=== PATIENT | female | born 2000 | race Caucasian/White ===

== ENCOUNTER → 2018-06-28 16:17 | Outpatient (CLI) | payer OTHER, SELFPAY ==
[2018-06-28 17:03] LABS: Basophils % 0.4 % (0.1-2.0); Eosinophils # 0.2 K/mm3 (0.0-0.4); Eosinophils % 2.3 % (0.1-12.0); Hemoglobin 14.6 g/dL (12.2-16.2); Lymphocytes # 2.7 K/mm3 (0.7-4.5); Lymphocytes % 29.9 K/mm3 (10-50); Mean Corpuscular HGB Conc 33.2 g/dL (31.8-35.4); Mean Corpuscular Hemoglobin 31.1 pg (27.0-31.2); Mean Corpuscular Volume 93.6 fl (81-99); Mean Platelet Volume 6.8 fl (7.4-10.4); Monocytes # 0.6 K/mm3 (0.1-1.0); Monocytes % 6.7 % (1.7-9.3); Neutrophils # 5.4 K/mm3 (1.8-7.8); Neutrophils % 60.8 % (37.0-80.0); Platelet Count 377 K/mm3 (142-424); Red Cell Distribution Width 12.9 % (11.5-17.5); White Blood Count 8.9 K/mm3 (4.5-13.0)
[2018-06-30 08:30] LABS: HIV Screen 4th Generation wRfx Non Reactive (Non Reactive)
[2018-06-30 09:11] LABS: Rapid Plasma Reagin Ab Titer Non Reactive (NonRea<1:1); Rubella Antibodies, IgG 1.03 index (Immune >0.99)
[2018-06-30 18:09] LABS: Hepatitis B Surface Antigen Negative (Negative); Hepatitis C Antibody <0.1 s/co ratio (0.0-0.9)
[2018-07-04 08:29] LABS: Neisseria gonorrhoeae, NAA Negative (Negative)
== END ==
PROVIDERS: PCP Family Medicine; Visit Provider Nurse Practitioner Obstetrics & Gynecology
DX: Z34.90 Encounter for supervision of normal pregnancy, unspecified, unspecified trimester (principal)
CPT/HCPCS: 36415; 85025; 86592; 86703; 86762; 86850; 87340; 87380; 87491; 87591; G0432

== ENCOUNTER → 2018-07-06 13:29 | Outpatient (CLI) | payer OTHER, SELFPAY ==
--- NOTE | 2018-07-06 13:31 | US_ITS ---
US OB transvaginal HISTORY: ITS.REASON: US OB- DATES ORDERING PHYSICIAN: Boogie Contreras MD PATIENT AGE: 18 years COMPARISON: None FINDINGS: There is an intrauterine gestational sac with a mean sac diameter of 1.78 cm. There is a yolk sac present with a questionable pole measuring 3.5 mm. This would correspond to gestational age of 6 weeks and 0 days. This however is not for certain. Consider follow-up exam as well as correlation with beta hCGs. No heart tones evident at this time. No adnexal mass or cul-de-sac fluid. IMPRESSION: Intrauterine gestational sac with questionable pole. No heart tones apparent. Cannot confirm viability at this time. Recommend 7-10 day follow-up as well as correlation with beta hCGs to confirm viability
== END ==
PROVIDERS: PCP Family Medicine; Visit Provider Nurse Practitioner Obstetrics & Gynecology
DX: O26.841 Uterine size-date discrepancy, first trimester (principal)
CPT/HCPCS: 76830

== ENCOUNTER → 2018-10-17 12:51 | Outpatient (CLI) | payer OTHER, SELFPAY ==
--- NOTE | 2018-10-17 12:54 | US_ITS ---
US OB /maternal detail: INDICATION: ITS.REASON: US OB Complete ORDERING PHYSICIAN: Boogie Contreras MD PATIENT AGE: 18 years TECHNIQUE: ultrasound transabdominal scanning. COMPARISON: No previous relevant studies. FINDINGS: Single viable intrauterine gestation. Range position. Placenta: Anterior placenta grade 1. There is average amount fluid. The cervix appears satisfactory. Closed and measuring 4 cm in length. Complete survey performed and was unremarkable on the submitted images as in PACS. No discrete anomalies identified on survey imaging by technologist. Active fetus. Three-vessel cord with satisfactory umbilical cord insertion. 4- chamber heart noted. Survey of brain & ventricles unremarkable. Face and neck survey unremarkable. Diaphragm and chest views unremarkable. Abdomen: Both kidneys noted and unremarkable. Stomach noted and satisfactory. Spine: Survey of the spine satisfactory with no anomalies identified nor imaged. Both arms and legs noted. Amniotic Fluid: Adequate. Maternal adnexa: No significant findings. Measurements: Average ultrasound age 20w6d. Gestational Age 21w0d. Estimated due date by ultrasound age 0402/28/2019. Estimated weight 380 grams. BPD = 21w1d OFD = 21w0d HC = 20w2d AC = 21w0d FL = 21w0d Growth Percentile= 35% Heart Rate = 147 Cerebellum = 21w1d Humerus = 21w6d HC/AC is 1.12 (1.06-1.25). CI is 79% (70-86%). FL/BPD is 70%. FL/AC is 22% (20-24%). IMPRESSION: There is a single live breech presentation with an average ultrasound age of 20 weeks 6 days. All parameters correlate. No obvious anomalies. Anterior grade 1 placenta. Please see above for details
== END ==
PROVIDERS: PCP Family Medicine; Visit Provider Nurse Practitioner Obstetrics & Gynecology
DX: Z36.0 Encounter for antenatal screening for chromosomal anomalies (principal)
CPT/HCPCS: 76811

== ENCOUNTER 2018-11-24 06:44 | Outpatient (CLI) | payer OTHER, SELFPAY ==
[2018-11-24 06:53] VITALS: BMI 61.0
[2018-11-24 07:03] VITALS: BP 96/59; PULSE 84; RESP 20; TEMP 36.7; O2SAT 98; BMI 45.3
[2018-11-24 07:45] LABS: Microscopic, Urine URINE MICROSCOPIC (MICROSCOPIC)
[2018-11-24 07:47] LABS: Appearance,Urine CLOUDY (Clear); Bilirubin,Urine Negative (Negative); Blood, Urine Negative (Negative); Glucose,Urine (UA) Negative (Negative); Ketones,Urine Negative (Negative); Leukocyte Esterase,Urine Negative (Negative); Nitrate,Urine Negative (Negative); Protein,Urine Negative (Negative); Specific Gravity, Urine >= 1.030 (1.005-1.030); Urobilinogen,Urine 0.2 EU/dl (0.2)
[2018-11-24 07:54] LABS: Color,Urine Dark Yellow (Yellow)
[2018-11-24 08:02] LABS: Bacteria,Urine Trace /lpf; Mucus,Urine 2+ /lpf; RBC,Urine Occasional #/hpf (0-3); WBC,Urine Occasional #/hpf (0-3)
--- NOTE | 2018-11-24 09:45 | SW/DCPLANNER ---
I have set this patient up with [facility]. Patient is currently ready for discharge and will transport under Medicaid benefit.
== END 2018-11-24 09:50 | disposition home or self-care (01) ==
LOC: OBOUT 06:46 → OB 06:48
PROVIDERS: PCP Family Medicine; Visit Provider Obstetrics & Gynecology
DX: O47.02 False labor before 37 completed weeks of gestation, second trimester (principal); Z3A.26 26 weeks gestation of pregnancy
CPT/HCPCS: 59025; 81001

== ENCOUNTER → 2018-12-06 08:13 | Outpatient (CLI) | payer OTHER, SELFPAY ==
[2018-12-06 08:51] LABS: Glucose,Fasting 100 mg/dL (60-105)
[2018-12-06 10:24] LABS: Glucose 1 Hour 141 mg/dL (74-106)
== END ==
PROVIDERS: Visit Provider Nurse Practitioner Obstetrics & Gynecology
DX: Z34.90 Encounter for supervision of normal pregnancy, unspecified, unspecified trimester (principal)
CPT/HCPCS: 36415; 82951

== ENCOUNTER → 2018-12-08 08:56 | Outpatient (CLI) | payer OTHER, SELFPAY ==
[2018-12-08 09:29] LABS: Glucose,Fasting 99 mg/dL (60-105)
[2018-12-08 11:21] LABS: Glucose 1 Hour 162 mg/dL (74-106)
[2018-12-08 12:13] LABS: Glucose 2 Hour 141 mg/dL (74-106)
[2018-12-08 14:06] LABS: Glucose 3 Hour 127 mg/dL (74-106)
== END ==
PROVIDERS: Visit Provider Nurse Practitioner Obstetrics & Gynecology
DX: Z34.90 Encounter for supervision of normal pregnancy, unspecified, unspecified trimester (principal)
CPT/HCPCS: 36415; 82951

== ENCOUNTER → 2019-01-23 08:48 | Outpatient (CLI) | payer OTHER, SELFPAY ==
--- NOTE | 2019-01-23 09:00 | US_ITS ---
US OB BPP w/Fet-Mat S/D: Indication: ITS.REASON: US OB BPP Growth, S/D Ratio- LGA ORDERING PHYSICIAN: Boogie Contreras MD PATIENT AGE: 18 years FINDINGS: The following parameters are obtained: Average ultrasound age is 36w4d. Estimated due date by ultrasound is 02/16/2019. Estimated weight is 2958 grams which is 91st percentile BPD: 35w6d OFD: OFD HC: 36w5d AC: 36w3d FL: 37w2d heart rate: 143 bpm. HC/AC: 1.00 (0.96-1.11) Cephalic index: 77% (70-86%) FL/BPD: 82% (71-87%) FL/AC: 22% (20-24%) Amniotic fluid index: 15 cm Qualitative AFV: 2 breathing movements: 2 Gross body movements: 2 Tone: 2 Biophysical profile score: 8/8 Doppler evaluation of the umbilical artery: SD ratio: 0.59 Resistive index: 2.4 No obvious anomalies evident. Placenta: Anterior GR 2 Cervix: Appears closed and measures 3 cm IMPRESSION: There is a single live fetus which is in cephalic presentation with average ultrasound age of 36 weeks 4 days. Estimated weight is 2958 g which is 91st percentile large for gestational age. Biophysical profile dated March with an amniotic fluid index of 15 cm within normal limits. Doppler evaluation of umbilical artery is unremarkable.
== END ==
PROVIDERS: PCP Family Medicine; Visit Provider Nurse Practitioner Obstetrics & Gynecology
DX: O36.60X0 Maternal care for excessive fetal growth, unspecified trimester, not applicable or unspecified (principal)
CPT/HCPCS: 76811; 76819; 76820

== ENCOUNTER → 2019-01-30 16:57 | Outpatient (CLI) | payer OTHER, SELFPAY | PROVIDERS: Visit Provider Nurse Practitioner Obstetrics & Gynecology | DX: Z34.90 Encounter for supervision of normal pregnancy, unspecified, unspecified trimester (principal) | CPT/HCPCS: 86403 ==

== ENCOUNTER 2019-02-05 07:10 | Outpatient (CLI) | payer OTHER, SELFPAY ==
[2019-02-05 07:45] VITALS: BP 126/62; PULSE 95; RESP 17; TEMP 36.4; O2SAT 97; BMI 48.0
--- NOTE | 2019-02-05 08:39 | [facility].ACPN2 ---
Internal Medicine - PN: Subj *Date: 02/05/19 *Time: 08:39 Interval history: She is a 19-year-old 1 para 0 at 36 weeks who complains of contractions. She arrived and was having a few minor contractions. She received IV fluids and her contractions are settled. Her cervix is unchanged at 1 cm with a high station and 25% effaced. Nonstress test is reactive. Exam Vital signs and Labs for Last 24 Hours: Temp Pulse Resp BP Pulse Ox 97.6 F 95 H 17 126/62 97 02/05/19 07:45 02/05/19 07:45 02/05/19 07:45 02/05/19 07:45 02/05/19 07:45 I & O for Last 24 hours: Intake & Output 02/02/19 02/03/19 02/04/19 02/05/19 11:59 11:59 11:59 11:59 Weight 230 lb - Constitutional no acute distress Assessment and Plan (1) False labor before 37 completed weeks of gestation Current visit: Yes Status: Acute Category: Medical Code(s): O47.00 - False labor before 37 completed weeks of gestation, unspecified trimester - Assessment and plan all Dx Assessment and Plan for all problems:: She received IV fluids and her contractions have settled. She feels much better. We will send her home. She has an appoint with me tomorrow.
== END 2019-02-05 09:00 | disposition home or self-care (01) ==
LOC: OBOUT 07:11 → OB 07:12
PROVIDERS: PCP Family Medicine; Visit Provider Nurse Practitioner Obstetrics & Gynecology
DX: O60.03 Preterm labor without delivery, third trimester (principal); Z3A.36 36 weeks gestation of pregnancy
CPT/HCPCS: 59025; 96360

== ENCOUNTER → 2019-02-16 09:55 | Outpatient (CLI) | payer OTHER, SELFPAY ==
--- NOTE | 2019-02-16 09:56 | US_ITS ---
US OB BPP w/Fet-Mat S/D Ordering Physician: Boogie Contreras MD Patient Age: 19 years: Female HISTORY: ITS.REASON: Large for gestational age. Decreased amniotic fluid. US OB BPP Growth, S/D Ratio- LGA US OB BPP w/Fet-Mat S/D: TECHNIQUE: ultrasound transabdominal scanning/cc. With biophysical profile and SD ratio COMPARISON: 01/23/2019 ultrasound with average ultrasound age 36 weeks 4 days at that time. FINDINGS: Single viable intrauterine gestation. Cephalic position Currently. Placenta: Anterior high placenta grade 2. Cervix Closed and measuring 3.5 cm in length. Limited survey performed. Unremarkable on the submitted images as in PACS. No discrete anomalies identified on survey imaging by technologist. Active fetus.Three-vessel cord with satisfactory umbilical cord insertion Four-chamber heart with additional cine lo0p views of heart and fetus included Limited images of the head, abdomen, extremities today were unremarkable. Appears to be a male fetus Measurements: Average ultrasound age 38 week 2 day. Gestational Age 38 week 1 day based on LMP 05/25/2018. Estimated due date by ultrasound age 402/28/2019. Estimated weight 3463 +/- 506 grams. Growth percentile 68% BPD = 38 week 1 day OFD = 38 week 6 day HC = 37 week 2 day AC = 38 week 3 day FL = 39 week 1 day Heart Rate = 156 BPM . HC/AC = 0.95.(. 0.92-1.05) CI = 82%.(70-86%). FL/BPD is 82%. FL/AC is 22%. ======== JOVAN = 8.88 Largest pocket 2.25 cm at the right upper quadrant ======== BIOPHYSICAL PROFILE 8 of possible 8 points. +2 for each category breathing, movement, tone and amniotic fluid volume. Over 2 cm] fluid pocket medially criteria for +2 scoring criteria utilized ======== SD ratio 2.4 Resistive index = 0.59 ---------IMPRESSION: 38 week 2 day average ultrasound age. Cephalic position. Grade 2 anterior high placenta. No previa. Lower JOVAN = 8.88 noted Biophysical Profile. = 8 of 8 points SD ratio 2.4
== END ==
PROVIDERS: PCP Family Medicine; Visit Provider Nurse Practitioner Obstetrics & Gynecology
DX: O36.60X0 Maternal care for excessive fetal growth, unspecified trimester, not applicable or unspecified (principal)
CPT/HCPCS: 76811; 76819; 76820

== ENCOUNTER 2019-02-23 05:28 | Inpatient (IN) ==
[2019-02-23 06:19] LABS: Basophils % 0.3 % (0.1-2.0); Eosinophils # 0.2 K/mm3 (0.0-0.4); Eosinophils % 1.6 % (0.1-12.0); Hematocrit 40.1 % (37.0-47.0); Hemoglobin 14.1 g/dL (12.2-16.2); Lymphocytes # 2.3 K/mm3 (0.7-4.5); Lymphocytes % 24.1 % (10-50); Mean Corpuscular HGB Conc 35.1 g/dL (31.8-35.4); Mean Corpuscular Hemoglobin 31.8 pg (27.0-31.2); Mean Corpuscular Volume 90.6 fl (81-99); Mean Platelet Volume 8.1 fl (7.4-10.4); Monocytes # 0.5 K/mm3 (0.1-1.0); Neutrophils # 6.7 K/mm3 (1.8-7.8); Neutrophils % 69.2 % (37.0-80.0); Platelet Count 269 K/mm3 (142-424); Red Blood Count 4.43 M/mm3 (4.20-5.40); Red Cell Distribution Width 13.3 % (11.5-17.5); White Blood Count 9.7 K/mm3 (4.8-10.8)
[2019-02-23 06:22] LABS: Anion Gap 17.4 mEq/L (5-15); Calcium 9.1 mg/dL (8.5-10.1); Potassium 3.4 mmoL/L (3.5-5.1)
[2019-02-23 07:07] LABS: Microscopic, Urine URINE MICROSCOPIC (MICROSCOPIC)
[2019-02-23 07:09] LABS: Appearance,Urine SL CLOUDY (Clear); Bilirubin,Urine Negative (Negative); Blood, Urine Negative (Negative); Color,Urine YELLOW (Yellow); Glucose,Urine (UA) Negative (Negative); Ketones,Urine 2+ (Negative); Leukocyte Esterase,Urine Negative (Negative); PH,Urine 6.5 (5.0-8.5); Protein,Urine Negative (Negative)
--- NOTE | 2019-02-23 07:13 | Progress Note ---
[facility] Anesthesia Checklist - Patient Identification Patient Identification: Arm Band, Verbal (Name & ) - Structural Data Admitted From: Home Planned Operative Procedure/s: Primary Consent for Planned Operative Procedure(s) Verified: Yes Verified Documents: Surgical Consent, History and Physical - NPO Status Verified Time NPO: 00:00 - Chart Verification Results Verified: CBC - Additional verifications Patient : Yes Anesthesia Reactions: No - Airway Assessment C-Spine Mobility Assessed: Yes TMJ Mobility Assessed: Yes Dentition: Good Dentition - Neurological Assessment Level of Consciousness: Awake Hx Seizures: No Numbness or tingling in extremities: No - Anesthesia Plan Anesthesia Risk discussed: Yes Anesthesia Plan: Verified ASA Class: II Anesthesia Type: Spinal [facility] History I have reviewed the patient's past medical history: Yes Medical History: Reports:: Gastroesophageal Reflux Disease(GERD) Denies:: Cancer, Diabetes Mellitus Type 1, Diabetes Mellitus Type 2, MRSA *Have you ever received a pneumonia vaccine?: No *Have you received a flu vaccine this season?: No Other Medical History: Reports: Other (obesity) Laterality Cases: Bilateral: Myringotomy (Ear Tubes), Tonsillectomy Other Surgeries: No: Amputation: No Fractures: No - *Social History Smoking Status: Current every day smoker # Packs/Day (cigarettes): 1 Alcohol Intake: never Substance Use Type: denies use *Occupational Status:: unemployed Family Hx:: No significant family history Para: 0
[2019-02-23 07:22] LABS: Bacteria,Urine 2+ /lpf; Squamous Epithelial Cell,Urine 20-50 #/hpf (0-5)
--- NOTE | 2019-02-23 08:29 | Operative Note ---
Date of procedure: 02/23/19 Pre-op Diagnosis:: Term , large for gestational age, maternal obesity, high head at term Post-op Diagnosis:: Term , large for gestational age, maternal obesity, high head at term Procedure performed:: Primary lower segment transverse section Surgeon:: Boogie Contreras MD Supervisor Shearing(s):: Teetee Ramos KNOCKDOWN MAN:: Tucker Hylton Anesthesia: spinal Estimated blood loss (mL): 700 Clinical Note:: She is a 19-year-old 1 para 0 at 39+ weeks gestational age. She has an extremely large baby and she is morbidly obese. The head was still high at term. After having discussed the risks and benefits we elected to perform a primary lower segment transverse section. Operative findings:: She delivered a liveborn male child at 7:54 AM on the morning of February 23, 2019. The baby weighed 8 pounds 12 ounces and had Apgars of 8 at 1 minute and 10 at 5 minutes. Ovaries and tubes appeared normal. Operative note:: She was taken to the operating room where spinal anesthesia was found be adequate. She was prepped and draped in normal sterile fashion in the supine position with a leftward tilt. A Page catheter was in the bladder. A Pfannenstiel skin incision was made with knife then carried through to the underlying layer of fascia with cautery. The fascia was opened in the midline with cautery and extended laterally using Vergara scissors. Herriman clamps were applied to the superior aspect of the fascial incision which was tented up and the underlying rectus muscles dissected off using cautery. The Ysabel clamps were then applied to the inferior aspect of the fascial incision which in a similar fashion was tented up and the underlying rectus muscles dissected off using cautery. The rectus muscles were then in the midline, the peritoneum identified, and entered sharply with Metzenbaum scissors. This incision was then extended superiorly and inferiorly with cautery. We had good visualization of the bladder inferiorly. The Kush device was then placed within the abdominal cavity. The bladder peritoneum was then opened in the midline and extended laterally using Metzenbaum scissors. A bladder flap was created digitally. Transverse incision was made through the uterine muscle to the amnion. This incision was then extended laterally using fingers traction. The amnion was entered sharply with knife. There was clear amniotic fluid. The 's head was then delivered atraumatically. A loose nuchal cord was then reduced. This was followed by the anterior shoulder and the rest of the infant's body atraumatically. The oropharynx and nasopharynx were bulb suctioned. The was then handed off to Dr. Martin who assigned Apgars of 8 at 1 minute and 10 at 5 minutes. We then obtained cord blood as well as cord pH. The pH was 7.34. Using gentle traction on the cord and countertraction on the fundus I was able to easily deliver the placenta intact. It had a normal three-vessel cord. The uterus was then cleared of clots and debris . The uterine incision was then closed using running 0 Vicryl suture in a locked fashion. A second layer of the same suture was used to imbricate the first layer. The bladder peritoneum was then closed using running 2-0 Vicryl suture in a locked fashion. The gutters and cul-de-sac were then cleared of clots and debris . Once again hemostasis was assured. The Kush device was then removed. The peritoneum was grasped with Genesis clamps and closed using running 2-0 Vicryl suture. The rectus muscles were then reapproximated using running 0 Vicryl suture. The fascia was closed using running #1 Vicryl suture. The subcutaneous tissues were then irrigated with warm water followed by closure Sara's fascia using running 2-0 Monocryl suture. The skin was closed with shell. I then cleaned the skin with Hibiclens. Sterile dressings were applied. She had a small dark irregular border lesion approximately 3 mm in size on the lower vulva. I spoke with the patient and she agreed to have this removed and sent to pathology. I was concerned about a precancerous melanoma. I grasped the small lesion with toothed pickups and using knife made a crescentic incision around this lesion. I then closed the small incision with interrupted s ubcuticular 4-0 Monocryl suture. Sterile dressing was applied. She tolerated the procedure well and was taken to the recovery room in excellent condition. All sponges minute and needle counts were correct. Estimate a blood loss was approximately 700 mL. Condition: stable Disposition: PACU Specimens:: Products of conception, vulvar lesion Complications:: None
--- NOTE | 2019-02-23 08:35 | Progress Note ---
[facility] Anesthesia Record Part II Discharge Time: 09:00 Destination: Obstetric PACU nurse assessment reviewed?: Yes Patient Condition:: Good Anesthesia Complications:: None Swallowing reflex intact?: Yes Cyanosis?: No
--- NOTE | 2019-02-23 08:35 | Progress Note ---
[facility] Anesthesia Record Part I Intake, IV Amount: 1,000 Estimated blood loss (mL): 700 Urine output (mL): 100 Blood Products used (#): none Blood Pressure: 155/72 SaO2: 100 Pulse Rate: 91 Respiratory Rate: 14 Temperature: 98.7 F Patient is:: Awake, Stable Stable to PACU at:: 08:30
--- NOTE | 2019-02-24 06:34 | Progress Note ---
Internal Medicine - PN: Subj *Date: 02/24/19 *Time: 06:32 Interval history: This is /postoperative day #1. The patient is afebrile. Vital signs stable. Wound clean. Abdomen soft. Lochia normal. Uterine fundus involuting well. Nursing well. Impression: Stable. Exam Vital signs and Labs for Last 24 Hours: Temp Pulse Resp BP Pulse Ox 98.3 F 78 18 109/57 L 96 02/23/19 19:55 02/23/19 19:55 02/23/19 19:55 02/23/19 19:55 02/23/19 19:55 Laboratory Results - last 24 hr 02/23/19 05:45: Urine Color Yellow, Urine Appearance Sl cloudy, Urine pH 6.5, Ur Specific Herrick 1.010, Urine Protein Negative, Urine Glucose (UA) Negative, Urine Ketones 2+, Urine Blood Negative, Urine Nitrate Negative, Urine Bilirubin Negative, Urine Urobilinogen 1.0, Ur Leukocyte Esterase Negative, Urine RBC None, Urine WBC 5-10, Ur Squamous Epith Cells 20-50, Urine Bacteria 2+ 02/23/19 06:05: Blood Type A Positive, Antibody Screen Negative 02/23/19 07:39: Urine Color Yellow, Urine Appearance Clear, Urine pH 6.5, Ur Specific Herrick 1.010, Urine Protein Negative, Urine Glucose (UA) Negative, Urine Ketones 2+, Urine Blood Negative, Urine Nitrate Negative, Urine Bilirubin Negative, Urine Urobilinogen 1.0, Ur Leukocyte Esterase Negative, Urine RBC None, Urine WBC 3-5, Ur Squamous Epith Cells 5-10, Urine Bacteria 1+ 02/23/19 07:58: Cord ABG pH 7.40 I & O for Last 24 hours: Intake & Output 02/21/19 02/22/19 02/23/19 02/24/19 11:59 11:59 11:59 11:59 Intake Total 1150 / 1150 Output Total 200 / 200 Balance 950 / 950 Weight 233 lb
[2019-02-24 07:10] LABS: Basophils % 0.2 % (0.1-2.0); Eosinophils # 0.1 K/mm3 (0.0-0.4); Eosinophils % 0.7 % (0.1-12.0); Hematocrit 32.3 % (37.0-47.0); Hemoglobin 11.1 g/dL (12.2-16.2); Lymphocytes # 2.8 K/mm3 (0.7-4.5); Lymphocytes % 22.8 % (10-50); Mean Corpuscular HGB Conc 34.3 g/dL (31.8-35.4); Mean Corpuscular Hemoglobin 31.7 pg (27.0-31.2); Mean Corpuscular Volume 92.3 fl (81-99); Mean Platelet Volume 8.2 fl (7.4-10.4); Monocytes # 0.7 K/mm3 (0.1-1.0); Monocytes % 5.6 % (1.7-9.3); Neutrophils # 8.7 K/mm3 (1.8-7.8); Neutrophils % 70.7 % (37.0-80.0); Platelet Count 250 K/mm3 (142-424); Red Cell Distribution Width 13.5 % (11.5-17.5); White Blood Count 12.3 K/mm3 (4.8-10.8)
--- NOTE | 2019-02-25 09:44 | Progress Note ---
Internal Medicine - PN: Subj *Date: 02/25/19 *Time: 09:42 Interval history: She continues to do very well. She is eating and drinking and ambulating. She is breast-feeding. Her lochia is normal. Exam Vital signs and Labs for Last 24 Hours: Temp Pulse Resp BP Pulse Ox 98.3 F 84 18 121/70 100 02/24/19 20:04 02/24/19 20:04 02/24/19 20:04 02/24/19 20:04 02/24/19 20:04 I & O for Last 24 hours: Intake & Output 02/22/19 02/23/19 02/24/19 02/25/19 11:59 11:59 11:59 11:59 Intake Total 1150 / 1150 Output Total 200 / 200 Balance 950 / 950 Weight 233 lb Microbiology Reports for the Last 24 Hours: Microbiology 02/23/19 05:45 Urine,Clean Catch Urine Culture - Final NO GROWTH AFTER 48 HOURS - Constitutional no acute distress Assessment and Plan (1) Large for gestational age fetus affecting mother, delivered Current visit: Yes Status: Acute Category: Medical Code(s): O36.60X0 - Maternal care for excessive growth, unspecified trimester, not applicable or unspecified (2) Maternal obesity affecting , antepartum Current visit: Yes Status: Acute Category: Medical Code(s): O99.210 - Obesity complicating , unspecified trimester (3) High head at term, delivered Current visit: Yes Status: Acute Category: Medical Code(s): O32.4XX0 - Maternal care for high head at term, not applicable or unspecified - Assessment and plan all Dx Assessment and Plan for all problems:: She is doing very well post . She will be discharged home tomorrow. She continues to breast-feed and is doing well with this.
[2019-02-25 21:42] VITALS: BP 124/65
--- NOTE | 2019-02-26 09:06 | Pharmacy Consult Notes ---
[facility] Pharmacy VTE Monitoring - Patient Demographics Admission date: 02/23/19 Report Date: 02/26/19 Time: 09:06 Allergies/Adverse Reactions: Patient Allergies amoxicillin Adverse Reaction (Verified 02/21/19 14:31) Height: 1.5 m Weight: 105.687 kg Patient Problems: Current Active Problems Large for gestational age fetus affecting mother, delivered (Acute) Maternal obesity affecting , antepartum (Acute) High head at term, delivered (Acute) - VTE Risk Labs: VTE Related Lab Results Hgb 11.1 g/dL (12.2-16.2) L 02/24/19 06:35 Hct 32.3 % (37.0-47.0) L 02/24/19 06:35 Plt Count 250 K/mm3 (142-424) 02/24/19 06:35 BUN 6 mg/dL (7-18) L 02/23/19 06:05 Creatinine 0.53 mg/dL (0.55-1.02) L 02/23/19 06:05 Estimated Creat Clear 108 mL/min (50-200) 02/23/19 06:05 - Prophylaxis VTE Prophylaxis Ordered?: Yes Types of VTE Prophylaxis: IPCS Thigh High Location of Applied Device: Bilateral Lower Extremeties - VTE Diagnosis Confirmed Treatment or plan recommended: Continue Current Treatment
--- NOTE | 2019-02-26 10:37 | Discharge Summary ---
General - General Admission date:: 02/23/19 Discharge date: 02/26/19 HPI HPI: She is a 19-year-old 1 para 0 at 39 and 1 weeks gestational age with a large for gestational age . The head was high at term. As result of that she was offered primary lower segment transverse section. Hospital Course Hospital Course: On February 23, 2019 she underwent a primary lower segment transverse section and delivered a liveborn male child at 7:54 AM. The baby had Apgars of 8 at 1 minute and 10 at 5 minutes. He weighed 8 pounds 12 ounces and was 20-1/2 inches long. His pH was 7.40. She has done well and has remained afebrile throughout her hospitalization. She is eating and drinking and ambulating. She is breast- feeding. She has a positive blood, she is rubella immune and was group B strep to coccus negative. Her spring machine operator is Dr. Martin. She is discharged home to follow-up with me in approximately 2 weeks time. She will continue with her vitamins and iron. She was given a prescription for Percocet 5/325 number 30 tablets. She was given the usual instructions with respect to limiting her activity, driving and sexual activities. Rhogam Administration: Not Indicated Objective Vital signs: Temp Pulse Resp BP Pulse Ox 98.0 F 81 18 124/65 96 02/25/19 20:42 02/25/19 20:42 02/25/19 20:42 02/25/19 20:42 02/25/19 20:42 no acute distress DS: Diagnosis - Discharge Diagnosis (1) Large for gestational age fetus affecting mother, delivered Status: Acute (2) Maternal obesity affecting , antepartum Status: Acute (3) High head at term, delivered Status: Acute Discharge Plan - Patient Discharge Instructions ACTIVITY: No heavy lifting DIET: continue same diet Additional Instructions: No heavy lifting, no strenuous activity, nothing in the vagina for 6 weeks. Patient Instructions: Depression, Hemorrhage, Surgical Site Infection, DI for Postoperative Pain, [facility] Post Discharge Instructions - Follow up Plan Follow up with: Boogie Contreras MD [Staff Physician] - Disposition: Home, Self-Nursing Home Medications: Home Medications Medication Instructions Recorded Confirmed Type vitamins no.106-iron 27.5 1 cap PO DAILY 07/31/18 02/23/19 History mg-folate no.6 1 mg-dha capsule Ferrous Sulfate 325 mg PO DAILY 02/23/19 02/23/19 History raNITIdine HCl [Ranitidine HCl] 150 mg PO BID 02/23/19 02/23/19 History Oxycodone HCl/Acetaminophen 1 - 2 tab PO Q4-6H PRN #30 tab 02/26/19 Rx [Percocet 5/325mg tablet] Prescriptions/Medication Reconciliation: New Oxycodone HCl/Acetaminophen [Percocet 5/325mg tablet] 1 - 2 tab PO Q4-6H PRN #30 tab PRN Reason: Severe Pain Continue vitamins no.106-iron 27.5 mg-folate no.6 1 mg-dha capsule 1 cap PO DAILY raNITIdine HCl [Ranitidine HCl] 150 mg PO BID Ferrous Sulfate 325 mg PO DAILY
== END 2019-02-26 11:52 | disposition home or self-care (01) | DRG 788 ==
LOC: OB 05:28
PROVIDERS: ADMIT Nurse Practitioner Obstetrics & Gynecology; ATTEND Nurse Practitioner Obstetrics & Gynecology
CPT/HCPCS: S0077

== ENCOUNTER → 2019-03-08 11:45 | Outpatient (CLI) | payer OTHER, SELFPAY | PROVIDERS: Visit Provider Nurse Practitioner Obstetrics & Gynecology | DX: R19.7 Diarrhea, unspecified (principal) | CPT/HCPCS: 87045 ==

== ENCOUNTER 2019-03-11 17:10 | Inpatient (IN) ==
--- NOTE | 2019-03-11 19:12 | History & Physical Report ---
*Admission Date: 03/11/19 *Chief complaint: Abdominal pain *History of present illness: This 19-year-old white female underwent a section on 02/23/[address] Contreras, without apparent complications. She was discharged on 02/26/2019 and was seen by him in his office on 03/08/2019. At that point she had no specific complaints. 2 nights ago, after eating pizza, she developed abdominal pain which worsened and localized to the right upper quadrant. She lives in [place], [place], which is also where her primary physician practices, and so she went to the [facility] emergency room, whence she was admitted to an inpatient bed. She was afebrile, and has remained so. Her lab results include a white count of 10.5 and an H/H of 14.3/42.5. Her platelet count is somewhat elevated, and her liver functions are likewise elevated, she was started on IV Toradol and IV Levaquin (urinalysis suggested a urinary tract infection). CT scan showed her gallbladder to be borderline distended but no stones were visible. The rest of her CT scan is normal except for an elongated fluid collection in the subcutaneous tissues of the lower anterior pelvic wall. However, she has no lower abdominal pain and her lochia is normal. Over the course of the next 24 hours, the patient's pain waxed and waned. I was called by the [facility] emergency room physician and, although there was several miscommunications about the patient's status, he informed me that their general surgeon review the records from a remote location and determined that the patient might have preeclampsia. The patient was told of several possible diagnoses, including hepatitis, pancreatitis, preeclampsia, and pelvic abscess, among others. The ER physician wanted the patient transferred to [facility] because she delivered here and her records are here and he was of the impression that her symptoms related to a condition. Ultimately the patient was brought here by ambulance and admitted to the [facility] floor. Upon admission, she is afebrile and her pain level is relatively low. She appears comfortable. She states that she has a history of "gallbladder issues" prior to the just-concluded . [facility] History Medical History: Reports:: Gall Bladder Disease, Gastroesophageal Reflux Disease(GERD) Denies:: Cancer, Diabetes Mellitus Type 1, Diabetes Mellitus Type 2, MRSA, Seizures *Have you ever received a pneumonia vaccine?: No *Have you received a flu vaccine this season?: No Other Medical History: Reports: Other Laterality Cases: Bilateral: Myringotomy (Ear Tubes), Tonsillectomy Other Surgeries: No: Amputation: No Fractures: No - *Social History Educational Level: Completed High School Smoking Status: Current every day smoker Tobacco Type: cigarettes # Packs/Day (cigarettes): 5 Alcohol Intake: never Substance Use Type: denies use *Occupational Status:: unemployed *Travel in the last 8 weeks: None - Psychiatric History Expresses thoughts of harming self/others: None Suicide Plan Description: No Plan Family Hx:: No significant family history Review of Systems - *Gastrointestinal Reports abdominal pain, Reports nausea, Reports vomiting Meds Home Medications Medication Instructions Recorded Confirmed Type vitamins no.106-iron 27.5 1 cap PO DAILY 07/31/18 03/08/19 History mg-folate no.6 1 mg-dha capsule Ferrous Sulfate 325 mg PO DAILY 02/23/19 03/08/19 History raNITIdine HCl [Ranitidine HCl] 150 mg PO BID 02/23/19 03/08/19 History Allergies Allergy/AdvReac Type Severity Reaction Status Date / Time Penicillins Allergy Mild Hives Verified 03/11/19 18:56 amoxicillin AdvReac Verified 03/08/19 10:40 Exam Vital signs and Labs for Last 24 Hours: Temp Pulse Resp BP Pulse Ox 98.7 F 52 L 17 152/94 H 98 03/11/19 18:08 03/11/19 18:08 03/11/19 18:08 03/11/19 18:08 03/11/19 18:08 I & O for Last 24 hours: Intake & Output 03/09/19 03/10/19 03/11/19 03/12/19 11:59 11:59 11:59 11:59 Weight 202 lb 4 oz - Constitutional mild distress, average body habitus - *Routine HEENT Exam Eye: Present: EOMI, PERRL ENT: Present: mucous membranes moist, dentition normal - *Routine Neck Exam Present: supple, full ROM. Absent: lymphadenopathy - *Routine Respiratory Exam Present: CTA bilaterally - *Routine Cardiovascular Exam Present: RRR - *Routine Abdominal Exam Present: guarding (In right upper quadrant. Positive Bar's sign.), surgical scars Comments: Recent Pfannenstiel incision, fully healed and nontender. - *Routine Extremities Exam Present: pulses intact. Absent: cyanosis, clubbing, edema - Routine Back/Spine/Pelvis Exam Comments: Well -involuted uterus - *Routine Skin Exam Present: warm. Absent: rash - *Routine Neurological Exam Present: alert, oriented X3 H&P: Result - Impressions Likely cholecystitis with nonfunctioning gallbladder. Assessment and Plan (1) Cholecystitis without calculus Current visit: Yes Status: Acute Category: Medical Code(s): K81.9 - Cholecystitis, unspecified Plan is to admit the patient overnight and continue treatment with antibiotics and analgesics. Dr. Leblanc (general surgeon) has been consulted and will see the patient in the morning. Dr. Contreras (the patient's primary capital project engineer) has also been notified of her status.
[2019-03-12 06:50] LABS: Basophils % 0.5 % (0.1-2.0); Eosinophils # 0.4 K/mm3 (0.0-0.4); Eosinophils % 5.7 % (0.1-12.0); Hematocrit 38.4 % (37.0-47.0); Hemoglobin 12.8 g/dL (12.2-16.2); Lymphocytes # 2.1 K/mm3 (0.7-4.5); Lymphocytes % 31.8 % (10-50); Mean Corpuscular HGB Conc 33.3 g/dL (31.8-35.4); Mean Platelet Volume 7.1 fl (7.4-10.4); Monocytes # 0.4 K/mm3 (0.1-1.0); Monocytes % 5.9 % (1.7-9.3); Neutrophils # 3.6 K/mm3 (1.8-7.8); Neutrophils % 56.1 % (37.0-80.0); Platelet Count 451 K/mm3 (142-424); Red Blood Count 4.13 M/mm3 (4.20-5.40); Red Cell Distribution Width 12.7 % (11.5-17.5); White Blood Count 6.5 K/mm3 (4.8-10.8)
[2019-03-12 07:01] LABS: Albumin Level 2.7 gm/dL (3.4-5.0); Albumin/Globulin Ratio 0.7 (1.1-1.8); Anion Gap 11.4 mEq/L (5-15); Bilirubin,Total 0.9 mg/dL (0.2-1.0); Calcium 8.8 mg/dL (8.5-10.1); Globulin 3.7 gm/dl (1.3-3.2); Potassium 3.4 mmoL/L (3.5-5.1); Total Protein,Serum 6.4 gm/dL (6.4-8.2)
--- NOTE | 2019-03-12 07:43 | Pharmacy Consult Notes ---
[facility] Pharmacy VTE Monitoring - Patient Demographics Admission date: 03/11/19 Report Date: 03/12/19 Time: 07:43 Allergies/Adverse Reactions: Patient Allergies Penicillins Allergy (Mild, Verified 03/11/19 18:56) Hives amoxicillin Adverse Reaction (Verified 03/08/19 10:40) Height: 1.47 m Weight: 91.739 kg Patient Problems: Current Active Problems (Updated 03/11/19 @ 19:22 by Jeffery Borden MD) Cholecystitis without calculus (Acute) - VTE Risk Labs: VTE Related Lab Results Hgb 12.8 g/dL (12.2-16.2) 03/12/19 06:14 Hct 38.4 % (37.0-47.0) 03/12/19 06:14 Plt Count 451 K/mm3 (142-424) H 03/12/19 06:14 BUN 6 mg/dL (7-18) L 03/12/19 06:14 Creatinine 0.73 mg/dL (0.55-1.02) 03/12/19 06:14 Estimated Creat Clear 79 mL/min (50-200) 03/12/19 06:14 Was VTE Risk Assessment Performed: No VTE Score: 0 VTE Risk Level: Very Low Risk - Prophylaxis VTE Prophylaxis Ordered?: Yes Types of VTE Prophylaxis: TEDS Knee High Location of Applied Device: Bilateral Lower Extremeties - VTE Diagnosis Confirmed Treatment or plan recommended: Continue Current Treatment
--- NOTE | 2019-03-12 08:24 | Consult Report ---
*Admission Date: 03/11/19 *Chief complaint: possible gallbladder disease *History of present illness: This is a 19yo female seen in consultation from the [facility] service for evaluation of possible gallbladder disease. Please see HPI from admission H&P forwarded below: This 19-year-old white female underwent a section on 02/23/[address] Contreras, without apparent complications. She was discharged on 02/26/2019 and was seen by him in his office on 03/08/2019. At that point she had no specific co mplaints. 2 nights ago, after eating pizza, she developed abdominal pain which worsened and localized to the right upper quadrant. She lives in [place], [place], which is also where her primary physician practices, and so she went to the [facility] emergency room, whence she was admitted to an inpatient bed. She was afebrile, and has remained so. Her lab results include a white count of 10.5 and an H/H of 14.3/42.5. Her platelet count is somewhat elevated, and her liver functions are likewise elevated, she was started on IV Toradol and IV Levaquin (urinalysis suggested a urinary tract infection). CT scan showed her gallbladder to be borderline distended but no stones were visible. The rest of her CT scan is normal except for an elongated fluid collection in the subcutaneous tissues of the lower anterior pelvic wall. However, she has no lower abdominal pain and her lochia is normal. Over the course of the next 24 hours, the patient's pain waxed and waned. I was called by the [facility] emergency room physician and, although there was several miscommunications about the patient's status, he informed me that their general surgeon review the records from a remote location and determined that the patient might have preeclampsia. The patient was told of several possible diagnoses, including hepatitis, pancreatitis, preeclampsia, and pelvic abscess, among others. The ER physician wanted the patient transferred to [facility] because she delivered here and her records are here and he was of the impression that her symptoms related to a condition. Ultimately the patient was brought here by ambulance and admitted to the [facility] floor. Upon admission, she is afebrile and her pain level is relatively low. She appears comfortable. She states that she has a history of "gallbladder issues" prior to the just-concluded . Review of Systems - Constitutional Reports anorexia - Eyes Denies change in vision - ENT Denies change in voice - *Cardiovascular Denies chest pain - *Respiratory Denies cough [facility] History Medical History: Reports:: Gall Bladder Disease, Gastroesophageal Reflux Disease(GERD) Denies:: Cancer, Diabetes Mellitus Type 1, Diabetes Mellitus Type 2, MRSA, Seizures *Have you ever received a pneumonia vaccine?: No *Have you received a flu vaccine this season?: No Other Medical History: Reports: Other Laterality Cases: Bilateral: Myringotomy (Ear Tubes), Tonsillectomy Other Surgeries: No: Amputation: No Fractures: No - *Social History Educational Level: Completed High School Smoking Status: Current every day smoker Tobacco Type: cigarettes # Packs/Day (cigarettes): 5 Alcohol Intake: never Substance Use Type: denies use *Occupational Status:: unemployed *Travel in the last 8 weeks: None - Psychiatric History Expresses thoughts of harming self/others: None Suicide Plan Description: No Plan Family Hx:: No significant family history Meds Home Medications Medication Instructions Recorded Confirmed Type vitamins no.106-iron 27.5 1 cap PO DAILY 07/31/18 03/12/19 History mg-folate no.6 1 mg-dha capsule Ferrous Sulfate 325 mg PO DAILY 02/23/19 03/12/19 History raNITIdine HCl [Ranitidine HCl] 150 mg PO BID 02/23/19 03/12/19 History Allergies Allergy/AdvReac Type Severity Reaction Status Date / Time Penicillins Allergy Mild Hives Verified 03/11/19 18:56 amoxicillin AdvReac Verified 03/08/19 10:40 Exam Vital signs and Labs for Last 24 Hours: Temp Pulse Resp BP Pulse Ox 98.9 F 54 L 16 145/82 H 100 03/12/19 08:00 03/12/19 08:00 03/12/19 08:00 03/12/19 08:00 03/12/19 08:00 Laboratory Results - last 24 hr 03/12/19 06:14: WBC 6.5, RBC 4.13 L, Hgb 12.8, Hct 38.4, MCV 93.0, MCH 31.0, MCHC 33.3, RDW 12.7, Plt Count 451 H, MPV 7.1 L, Neut % (Auto) 56.1, Lymph % (Auto) 31.8, [place] % (Auto) 5.9, Eos % (Auto) 5.7, Baso % (Auto) 0.5, Neut # (Auto) 3.6, Lymph # (Auto) 2.1, [place] # (Auto) 0.4, Eos # (Auto) 0.4, Baso # (Auto) 0.0 03/12/19 06:14: Sodium 139, Potassium 3.4 L, Chloride 105, Carbon Dioxide 26, Anion Gap 11.4, BUN 6 L, Creatinine 0.73, Estimated Creat Clear 79, Estimated GFR 101, Est GFR ( Amer) 122, Glucose 91, Calcium 8.8, Total Bilirubin 0.9, AST 145 H, ALT 124 H, Alkaline Phosphatase 450 H, Total Protein 6.4, Albumin 2.7 L, Globulin 3.7 H, Albumin/Globulin Ratio 0.7 L I & O for Last 24 hours: Intake & Output 03/09/19 03/10/19 03/11/19 03/12/19 11:59 11:59 11:59 11:59 Intake Total 150 / 150 Balance 150 / 150 Weight 202 lb 4 oz - Constitutional no acute distress - *Routine Respiratory Exam Absent: respiratory distress - *Routine Cardiovascular Exam Present: RRR - *Routine Abdominal Exam Present: soft, tenderness. Absent: distended Comments: epigastric and RUQ TTP Results - Labs 03/12/19 06:14 03/12/19 06:14 Laboratory Results - last 24 hr 03/12/19 06:14: WBC 6.5, RBC 4.13 L, Hgb 12.8, Hct 38.4, MCV 93.0, MCH 31.0, MCHC 33.3, RDW 12.7, Plt Count 451 H, MPV 7.1 L, Neut % (Auto) 56.1, Lymph % (Auto) 31.8, [place] % (Auto) 5.9, Eos % (Auto) 5.7, Baso % (Auto) 0.5, Neut # (Auto) 3.6, Lymph # (Auto) 2.1, [place] # (Auto) 0.4, Eos # (Auto) 0.4, Baso # (Auto) 0.0 03/12/19 06:14: Sodium 139, Potassium 3.4 L, Chloride 105, Carbon Dioxide 26, Anion Gap 11.4, BUN 6 L, Creatinine 0.73, Estimated Creat Clear 79, Estimated GFR 101, Est GFR ( Amer) 122, Glucose 91, Calcium 8.8, Total Bilirubin 0.9, AST 145 H, ALT 124 H, Alkaline Phosphatase 450 H, Total Protein 6.4, Albumin 2.7 L, Globulin 3.7 H, Albumin/Globulin Ratio 0.7 L Assessment and Plan (1) RUQ pain Current visit: Yes Status: Acute Category: Medical Code(s): R10.11 - Right upper quadrant pain (2) Abnormal liver enzymes Current visit: Yes Status: Acute Category: Medical Code(s): R74.8 - Abnormal levels of other serum enzymes - Assessment and plan all Dx Assessment and Plan for all problems:: RUQ US ordered Amylase/Lipase ordered F/U pending hepatitis panel ? cholecystectomy (pending above)
[2019-03-12 08:54] LABS: Amylase 20 U/L (25-115); Lipase 125 u/L (73-393)
--- NOTE | 2019-03-12 09:37 | Progress Note ---
Internal Medicine - PN: Subj *Date: 03/12/19 *Time: 09:34 Interval history: She was seen by Dr. Gray this morning in consultation and we are waiting an ultrasound as well as hepatitis panel. She is feeling somewhat better. She still complains of pain that waxes and wanes. She has been receiving IV Toradol as well as Levaquin. I have ordered her 5 mg of oxycodone. Her vital signs are stable. Her blood pressure is somewhat elevated in the 1 40-150 /85 range and she says she has a mild headache at times. She otherwise looks well. Her liver function tests continue to be elevated. Her platelets are normal to slightly elevated. Exam Vital signs and Labs for Last 24 Hours: Temp Pulse Resp BP Pulse Ox 98.9 F 51 L 16 132/92 H 100 03/12/19 08:00 03/12/19 09:02 03/12/19 09:02 03/12/19 09:02 03/12/19 09:02 Laboratory Results - last 24 hr 03/12/19 06:14: WBC 6.5, RBC 4.13 L, Hgb 12.8, Hct 38.4, MCV 93.0, MCH 31.0, MCHC 33.3, RDW 12.7, Plt Count 451 H, MPV 7.1 L, Neut % (Auto) 56.1, Lymph % (Auto) 31.8, [place] % (Auto) 5.9, Eos % (Auto) 5.7, Baso % (Auto) 0.5, Neut # (Auto) 3.6, Lymph # (Auto) 2.1, [place] # (Auto) 0.4, Eos # (Auto) 0.4, Baso # (Auto) 0.0 03/12/19 06:14: Sodium 139, Potassium 3.4 L, Chloride 105, Carbon Dioxide 26, Anion Gap 11.4, BUN 6 L, Creatinine 0.73, Estimated Creat Clear 79, Estimated GFR 101, Est GFR ( Amer) 122, Glucose 91, Calcium 8.8, Total Bilirubin 0.9, AST 145 H, ALT 124 H, Alkaline Phosphatase 450 H, Total Protein 6.4, Albumin 2.7 L, Globulin 3.7 H, Albumin/Globulin Ratio 0.7 L 03/12/19 06:14: Amylase 20 L, Lipase 125 I & O for Last 24 hours: Intake & Output 03/09/19 03/10/19 03/11/19 03/12/19 11:59 11:59 11:59 11:59 Intake Total 150 / 150 Balance 150 / 150 Weight 202 lb 4 oz - Constitutional no acute distress - *Routine HEENT Exam Head: Present: normocephalic Eye: Present: EOMI, PERRL ENT: Present: mucous membranes moist Assessment and Plan (1) RUQ pain Current visit: Yes Status: Acute Category: Medical Code(s): R10.11 - Right upper quadrant pain (2) Abnormal liver enzymes Current visit: Yes Status: Acute Category: Medical Code(s): R74.8 - Abnormal levels of other serum enzymes - Assessment and plan all Dx Assessment and Plan for all problems:: At this point in time given her elevated liver enzymes I suspect that this is not a condition but rather related to her gallbladder. We will await the results of her ultrasound and Dr. Gray's decision about possible cholecystectomy. In the meantime we will treat her conservatively and continue a low-fat diet.
[2019-03-13 07:12] LABS: Hepatitis B Core Antibody IgM Negative (Negative); Hepatitis B Surface Antigen Negative (Negative)
[2019-03-13 07:33] LABS: Albumin Level 2.6 gm/dL (3.4-5.0); Anion Gap 14.4 mEq/L (5-15); Bilirubin,Direct 0.2 mg/dL (0.0-0.2); Bilirubin,Indirect 0.4 mg/dL (0.0-0.9); Bilirubin,Total 0.6 mg/dL (0.2-1.0); Calcium 8.3 mg/dL (8.5-10.1); Potassium 3.4 mmoL/L (3.5-5.1)
--- NOTE | 2019-03-13 08:46 | Progress Note ---
Subjective Patient reports: still having pain Exam Vital signs and Labs for Last 24 Hours: Temp Pulse Resp BP Pulse Ox 97.7 F 54 L 14 139/84 99 03/13/19 08:00 03/13/19 08:00 03/13/19 08:00 03/13/19 08:00 03/13/19 08:00 Laboratory Results - last 24 hr 03/12/19 06:14: Amylase 20 L, Lipase 125 03/13/19 06:04: Sodium 142, Potassium 3.4 L, Chloride 106, Carbon Dioxide 25, Anion Gap 14.4, BUN 15 D, Creatinine 0.90 D, Estimated Creat Clear 60, Estimated GFR 79, Est GFR ( Amer) 96 D, Glucose 94, Calcium 8.3 L, Total Bilirubin 0.6, Direct Bilirubin 0.2, Indirect Bilirubin 0.4, AST 230 H D, ALT 153 H, Alkaline Phosphatase 717 H, Total Protein 6.0 L, Albumin 2.6 L I & O for Last 24 hours: Intake & Output 03/10/19 03/11/19 03/12/19 03/13/19 11:59 11:59 11:59 11:59 Intake Total 300 / 300 720 / 720 Balance 300 / 300 720 / 720 Weight 202 lb 4 oz 209 lb 7 oz Radiology Reports for the Last 24 Hours: Right upper quadrant ultrasound revealed cholelithiasis but no changes consistent with cholecystitis or obstruction. - Constitutional no acute distress - *Routine Abdominal Exam Present: soft, tenderness Progress Note: A&P (1) RUQ pain Status: Acute Current Visit: Yes (2) Abnormal liver enzymes Status: Acute Assessment and plan: Bilirubin remains normal. Transaminases continue to slightly increased. Alk phos continues to show fairly significant elevation. Overall, the above changes are not consistent with a single entity. Although elevated bilirubin levels would be expected with hepatitis and would also be expected with any "obstruction", and atypical hepatitis with normal bilirubin levels are certainly a possibility. Follow-up pending hepatitis panel Current Visit: Yes (3) Cholelithiasis Status: Acute Assessment and plan: No definitive evidence of cholecystitis. Elevated transaminases and alk phos with normal bilirubin levels are not necessarily consistent with obstruction. Repeat amylase/lipase If results of hepatitis panel are negative and if she does not have pancreatitis she will be scheduled for cholecystectomy. Current Visit: Yes
[2019-03-13 09:44] LABS: Amylase 109 U/L (25-115)
[2019-03-13 09:59] LABS: Lipase 2293 u/L (73-393)
[2019-03-13 10:10] LABS: Hepatitis C Antibody 0.1 s/co ratio (0.0-0.9)
--- NOTE | 2019-03-13 17:32 | Progress Note ---
Internal Medicine - PN: Subj *Date: 03/13/19 *Time: 17:31 Interval history: She is doing a little better this afternoon. I had started her on 10 mg of oxycodone. She had been taking 5 mg she has what appears to be pancreatitis with elevated lipase levels. Uppercase panel is negative. Dr. Leblanc is following her along with me and we will consider a laparoscopic cholecystectomy when she has stabilized. Since her pain is still present and she has pancreatitis we will continue with hospitalization for now. We will reassess her day by day. Exam Vital signs and Labs for Last 24 Hours: Temp Pulse Resp BP Pulse Ox 98.3 F 48 L 17 155/92 H 100 03/13/19 16:00 03/13/19 16:00 03/13/19 16:00 03/13/19 16:00 03/13/19 16:00 Laboratory Results - last 24 hr 03/12/19 06:14: Hepatitis A IgM Ab Negative, Hep Bs Antigen Negative, Hep B Core IgM Ab Negative, Hepatitis C Antibody 0.1 03/13/19 06:04: Sodium 142, Potassium 3.4 L, Chloride 106, Carbon Dioxide 25, Anion Gap 14.4, BUN 15 D, Creatinine 0.90 D, Estimated Creat Clear 60, Estimated GFR 79, Est GFR ( Amer) 96 D, Glucose 94, Calcium 8.3 L, Total Bilirubin 0.6, Direct Bilirubin 0.2, Indirect Bilirubin 0.4, AST 230 H D, ALT 153 H, Alkaline Phosphatase 717 H, Total Protein 6.0 L, Albumin 2.6 L 03/13/19 06:04: Amylase 109, Lipase 2293 H I & O for Last 24 hours: Intake & Output 03/11/19 03/12/19 03/13/19 03/14/19 11:59 11:59 11:59 11:59 Intake Total 300 / 300 720 / 720 240 / 240 Balance 300 / 300 720 / 720 240 / 240 Weight 202 lb 4 oz 209 lb 7 oz - Constitutional no acute distress Assessment and Plan (1) RUQ pain Current visit: Yes Status: Acute Category: Medical Code(s): R10.11 - Right upper quadrant pain (2) Abnormal liver enzymes Current visit: Yes Status: Acute Category: Medical Code(s): R74.8 - Abnormal levels of other serum enzymes (3) Cholelithiasis Current visit: Yes Status: Acute Category: Medical Code(s): K80.20 - Calculus of gallbladder without cholecystitis without obstruction (4) Pancreatitis Current visit: Yes Status: Acute Category: Medical Code(s): K85.90 - Acute pancreatitis without necrosis or infection, unspecified - Assessment and plan all Dx Assessment and Plan for all problems:: We will continue with pain relief for now. She will get repeat blood work in the morning. We will determine when the best time is for her laparoscopic cholecystectomy.
[2019-03-14 06:46] LABS: Basophils % 0.6 % (0.1-2.0); Eosinophils # 0.4 K/mm3 (0.0-0.4); Eosinophils % 6.2 % (0.1-12.0); Hematocrit 38.4 % (37.0-47.0); Hemoglobin 12.3 g/dL (12.2-16.2); Lymphocytes # 2.9 K/mm3 (0.7-4.5); Lymphocytes % 47.7 % (10-50); Mean Corpuscular Hemoglobin 30.2 pg (27.0-31.2); Mean Corpuscular Volume 94.4 fl (81-99); Mean Platelet Volume 7.1 fl (7.4-10.4); Monocytes # 0.4 K/mm3 (0.1-1.0); Monocytes % 6.2 % (1.7-9.3); Neutrophils # 2.4 K/mm3 (1.8-7.8); Neutrophils % 39.4 % (37.0-80.0); Platelet Count 424 K/mm3 (142-424); Red Blood Count 4.06 M/mm3 (4.20-5.40); Red Cell Distribution Width 12.7 % (11.5-17.5); White Blood Count 6.1 K/mm3 (4.8-10.8)
[2019-03-14 06:59] LABS: Albumin Level 2.6 gm/dL (3.4-5.0); Albumin/Globulin Ratio 0.8 (1.1-1.8); Anion Gap 11.3 mEq/L (5-15); Bilirubin,Total 0.3 mg/dL (0.2-1.0); Calcium 8.6 mg/dL (8.5-10.1); Globulin 3.4 gm/dl (1.3-3.2); Potassium 4.3 mmoL/L (3.5-5.1)
--- NOTE | 2019-03-14 08:11 | Progress Note ---
Subjective Patient reports: other ("just a little better") Exam Vital signs and Labs for Last 24 Hours: Temp Pulse Resp BP Pulse Ox 98.3 F 69 17 113/67 98 03/14/19 08:00 03/14/19 08:00 03/14/19 08:00 03/14/19 08:00 03/14/19 08:00 Laboratory Results - last 24 hr 03/12/19 06:14: Hepatitis A IgM Ab Negative, Hep Bs Antigen Negative, Hep B Core IgM Ab Negative, Hepatitis C Antibody 0.1 03/13/19 06:04: Amylase 109, Lipase 2293 H 03/14/19 05:45: WBC 6.1, RBC 4.06 L, Hgb 12.3, Hct 38.4, MCV 94.4, MCH 30.2, MCHC 32.0, RDW 12.7, Plt Count 424, MPV 7.1 L, Neut % (Auto) 39.4, Lymph % (Auto) 47.7, [place] % (Auto) 6.2, Eos % (Auto) 6.2, Baso % (Auto) 0.6, Neut # (Auto) 2.4, Lymph # (Auto) 2.9, [place] # (Auto) 0.4, Eos # (Auto) 0.4, Baso # (Auto) 0.0 03/14/19 05:45: Sodium 140, Potassium 4.3 D, Chloride 104, Carbon Dioxide 29, Anion Gap 11.3, BUN 17, Creatinine 0.88, Estimated Creat Clear 62, Estimated GFR 81, Est GFR ( Amer) 98, Glucose 72 L D, Calcium 8.6, Total Bilirubin 0.3, AST 43 H D, ALT 95 H D, Alkaline Phosphatase 556 H, Total Protein 6.0 L, Albumin 2.6 L, Globulin 3.4 H, Albumin/Globulin Ratio 0.8 L, Amylase 24 L D, Lipase 139 I & O for Last 24 hours: Intake & Output 03/11/19 03/12/19 03/13/19 03/14/19 11:59 11:59 11:59 11:59 Intake Total 300 / 300 870 / 870 3705 / 3705 Output Total 1000 / 1000 Balance 300 / 300 870 / 870 2705 / 2705 Weight 202 lb 4 oz 209 lb 7 oz 211 lb - Constitutional no acute distress - *Routine Respiratory Exam Absent: respiratory distress - *Routine Abdominal Exam Present: soft, tenderness Progress Note: A&P (1) RUQ pain Status: Acute Current Visit: No (2) Abnormal liver enzymes Status: Acute Current Visit: No (3) Cholelithiasis Status: Acute Current Visit: No (4) Gallstone pancreatitis Status: Acute Assessment and plan: Biochemically improving. Slightly improved symptomatically. Repeat CMP/amylase/lipase in a.m. Plan for laparoscopic cholecystectomy with intraoperative cholangiogram tomorrow if she continues to show signs of resolution with regard to pancreatitis. Current Visit: Yes
--- NOTE | 2019-03-14 08:40 | Progress Note ---
Internal Medicine - PN: Subj *Date: 03/14/19 *Time: 08:40 Exam Vital signs and Labs for Last 24 Hours: Temp Pulse Resp BP Pulse Ox 98.3 F 69 17 113/67 98 03/14/19 08:00 03/14/19 08:00 03/14/19 08:00 03/14/19 08:00 03/14/19 08:00 Laboratory Results - last 24 hr 03/12/19 06:14: Hepatitis A IgM Ab Negative, Hep Bs Antigen Negative, Hep B Core IgM Ab Negative, Hepatitis C Antibody 0.1 03/13/19 06:04: Amylase 109, Lipase 2293 H 03/14/19 05:45: WBC 6.1, RBC 4.06 L, Hgb 12.3, Hct 38.4, MCV 94.4, MCH 30.2, MCHC 32.0, RDW 12.7, Plt Count 424, MPV 7.1 L, Neut % (Auto) 39.4, Lymph % (Auto) 47.7, [place] % (Auto) 6.2, Eos % (Auto) 6.2, Baso % (Auto) 0.6, Neut # (Auto) 2.4, Lymph # (Auto) 2.9, [place] # (Auto) 0.4, Eos # (Auto) 0.4, Baso # (Auto) 0.0 03/14/19 05:45: Sodium 140, Potassium 4.3 D, Chloride 104, Carbon Dioxide 29, Anion Gap 11.3, BUN 17, Creatinine 0.88, Estimated Creat Clear 62, Estimated GFR 81, Est GFR ( Amer) 98, Glucose 72 L D, Calcium 8.6, Total Bilirubin 0.3, AST 43 H D, ALT 95 H D, Alkaline Phosphatase 556 H, Total Protein 6.0 L, Albumin 2.6 L, Globulin 3.4 H, Albumin/Globulin Ratio 0.8 L, Amylase 24 L D, Lipase 139 I & O for Last 24 hours: Intake & Output 03/11/19 03/12/19 03/13/19 03/14/19 23:59 23:59 23:59 23:59 Intake Total 1170 / 1170 1765 / 1765 1940 / 1940 Output Total 1000 / 1000 Balance 1170 / 1170 1765 / 1765 940 / 940 Weight 91.739 kg 91.739 kg 94.999 kg 95.708 kg Assessment and Plan (1) RUQ pain Current visit: No Status: Acute Category: Medical Code(s): R10.11 - Right upper quadrant pain (2) Abnormal liver enzymes Current visit: No Status: Acute Category: Medical Code(s): R74.8 - Abnormal levels of other serum enzymes (3) Cholelithiasis Current visit: No Status: Acute Category: Medical Code(s): K80.20 - Calculus of gallbladder without cholecystitis without obstruction (4) Gallstone pancreatitis Current visit: Yes Status: Acute Category: Medical Code(s): K85.10 - Biliary acute pancreatitis without necrosis or infection The patient's infection will respond to the chosen ABx?: Yes Is the patient receiving the right drug, dose, and route?: Yes Could a more targeted ABx be ordered?: No
--- NOTE | 2019-03-14 09:33 | Progress Note ---
Internal Medicine - PN: Subj *Date: 03/14/19 *Time: 09:32 Interval history: She seems to be doing a little better this morning. Her blood work has improved. Her AST and ALT have come down significantly. Her lipase has normalized. She still continues to have some lower abdominal pain but she is doing better. She was seen by Dr. Leblanc and he is scheduled her for a laparoscopic cholecystectomy for tomorrow. Exam Vital signs and Labs for Last 24 Hours: Temp Pulse Resp BP Pulse Ox 98.3 F 69 17 113/67 100 03/14/19 08:00 03/14/19 08:00 03/14/19 08:00 03/14/19 08:00 03/14/19 08:00 Laboratory Results - last 24 hr 03/12/19 06:14: Hepatitis A IgM Ab Negative, Hep Bs Antigen Negative, Hep B Core IgM Ab Negative, Hepatitis C Antibody 0.1 03/13/19 06:04: Amylase 109, Lipase 2293 H 03/14/19 05:45: WBC 6.1, RBC 4.06 L, Hgb 12.3, Hct 38.4, MCV 94.4, MCH 30.2, MCHC 32.0, RDW 12.7, Plt Count 424, MPV 7.1 L, Neut % (Auto) 39.4, Lymph % (Auto) 47.7, [place] % (Auto) 6.2, Eos % (Auto) 6.2, Baso % (Auto) 0.6, Neut # (Auto) 2.4, Lymph # (Auto) 2.9, [place] # (Auto) 0.4, Eos # (Auto) 0.4, Baso # (Auto) 0.0 03/14/19 05:45: Sodium 140, Potassium 4.3 D, Chloride 104, Carbon Dioxide 29, Anion Gap 11.3, BUN 17, Creatinine 0.88, Estimated Creat Clear 62, Estimated GFR 81, Est GFR ( Amer) 98, Glucose 72 L D, Calcium 8.6, Total Bilirubin 0.3, AST 43 H D, ALT 95 H D, Alkaline Phosphatase 556 H, Total Protein 6.0 L, Albumin 2.6 L, Globulin 3.4 H, Albumin/Globulin Ratio 0.8 L, Amylase 24 L D, Lipase 139 I & O for Last 24 hours: Intake & Output 03/11/19 03/12/19 03/13/19 03/14/19 11:59 11:59 11:59 11:59 Intake Total 300 / 300 870 / 870 3705 / 3705 Output Total 1000 / 1000 Balance 300 / 300 870 / 870 2705 / 2705 Weight 202 lb 4 oz 209 lb 7 oz 211 lb - Constitutional no acute distress Assessment and Plan (1) RUQ pain Current visit: No Status: Acute Category: Medical Code(s): R10.11 - Right upper quadrant pain (2) Abnormal liver enzymes Current visit: No Status: Acute Category: Medical Code(s): R74.8 - Abnormal levels of other serum enzymes (3) Cholelithiasis Current visit: No Status: Acute Category: Medical Code(s): K80.20 - Calculus of gallbladder without cholecystitis without obstruction (4) Gallstone pancreatitis Current visit: Yes Status: Acute Category: Medical Code(s): K85.10 - Biliary acute pancreatitis without necrosis or infection - Assessment and plan all Dx Assessment and Plan for all problems:: She is doing significantly better this morning. Her blood work has stabilized and is improving. Her hepatitis panel was negative. We will continue with ob servation and fluids this seems to have helped. We will plan laparoscopic cholecystectomy tomorrow with Dr. Leblanc.
--- NOTE | 2019-03-15 06:56 | Progress Note ---
Subjective Patient reports: feels better, still having pain ("a bit better") Exam Vital signs and Labs for Last 24 Hours: Temp Pulse Resp BP Pulse Ox 98.6 F 70 15 126/76 96 03/15/19 04:00 03/15/19 04:00 03/15/19 04:00 03/15/19 04:00 03/15/19 04:00 Laboratory Results - last 24 hr 03/14/19 05:45: WBC 6.1, RBC 4.06 L, Hgb 12.3, Hct 38.4, MCV 94.4, MCH 30.2, MCHC 32.0, RDW 12.7, Plt Count 424, MPV 7.1 L, Neut % (Auto) 39.4, Lymph % (Auto) 47.7, [place] % (Auto) 6.2, Eos % (Auto) 6.2, Baso % (Auto) 0.6, Neut # (Auto) 2.4, Lymph # (Auto) 2.9, [place] # (Auto) 0.4, Eos # (Auto) 0.4, Baso # (Auto) 0.0 03/14/19 05:45: Sodium 140, Potassium 4.3 D, Chloride 104, Carbon Dioxide 29, Anion Gap 11.3, BUN 17, Creatinine 0.88, Estimated Creat Clear 62, Estimated GFR 81, Est GFR ( Amer) 98, Glucose 72 L D, Calcium 8.6, Total Bilirubin 0.3, AST 43 H D, ALT 95 H D, Alkaline Phosphatase 556 H, Total Protein 6.0 L, Albumin 2.6 L, Globulin 3.4 H, Albumin/Globulin Ratio 0.8 L, Amylase 24 L D, Lipase 139 I & O for Last 24 hours: Intake & Output 03/12/19 03/13/19 03/14/19 03/15/19 11:59 11:59 11:59 11:59 Intake Total 300 / 300 870 / 870 3855 / 3855 4348 / 4348 Output Total 1000 / 1000 3700 / 3700 Balance 300 / 300 870 / 870 2855 / 2855 648 / 648 Weight 202 lb 4 oz 209 lb 7 oz 211 lb 212 lb 1 oz - Constitutional no acute distress - *Routine Respiratory Exam Absent: respiratory distress - *Routine Abdominal Exam Present: soft, tenderness. Absent: distended Comments: TTP improved Progress Note: A&P (1) RUQ pain Status: Acute Current Visit: No (2) Abnormal liver enzymes Status: Acute Current Visit: No (3) Cholelithiasis Status: Acute Current Visit: No (4) Gallstone pancreatitis Status: Acute Assessment and plan: F/U AM labs Likely cholecystectomy with cholangiogram today (pending above results) Current Visit: Yes
[2019-03-15 07:15] LABS: Albumin Level 2.5 gm/dL (3.4-5.0); Albumin/Globulin Ratio 0.8 (1.1-1.8); Anion Gap 10.9 mEq/L (5-15); Bilirubin,Total 0.3 mg/dL (0.2-1.0); Calcium 8.3 mg/dL (8.5-10.1); Globulin 3.1 gm/dl (1.3-3.2); Potassium 3.9 mmoL/L (3.5-5.1); Total Protein,Serum 5.6 gm/dL (6.4-8.2)
--- NOTE | 2019-03-15 08:44 | Progress Note ---
Internal Medicine - PN: Michel *Date: 03/15/19 *Time: 08:43 Interval history: She is doing a little better this morning. She is scheduled for a laparoscopic cholecystectomy later today. We may consider sending her home after that. Exam Vital signs and Labs for Last 24 Hours: Temp Pulse Resp BP Pulse Ox 98.3 F 77 17 119/82 99 03/15/19 08:00 03/15/19 08:00 03/15/19 08:00 03/15/19 08:00 03/15/19 08:00 Laboratory Results - last 24 hr 03/15/19 06:02: Sodium 140, Potassium 3.9, Chloride 104, Carbon Dioxide 29, Anion Gap 10.9, BUN 15, Creatinine 0.80, Estimated Creat Clear 68, Estimated GFR 91, Est GFR ( Amer) 110, Glucose 91, Calcium 8.3 L, Total Bilirubin 0.3, AST 49 H, ALT 89 H, Alkaline Phosphatase 763 H, Total Protein 5.6 L, Albumin 2.5 L, Globulin 3.1, Albumin/Globulin Ratio 0.8 L, Amylase 22 L, Lipase 128 I & O for Last 24 hours: Intake & Output 03/12/19 03/13/19 03/14/19 03/15/19 11:59 11:59 11:59 11:59 Intake Total 300 / 300 870 / 870 3855 / 3855 4348 / 4348 Output Total 1000 / 1000 3700 / 3700 Balance 300 / 300 870 / 870 2855 / 2855 648 / 648 Weight 202 lb 4 oz 209 lb 7 oz 211 lb 212 lb 1 oz - Constitutional no acute distress - *Routine HEENT Exam Head: Present: normocephalic Eye: Present: EOMI, PERRL ENT: Present: mucous membranes moist - *Routine Respiratory Exam Absent: accessory muscle use (good air entry bilaterally), wheezes, crackles - *Routine Neurological Exam Present: alert, oriented X3 Assessment and Plan (1) RUQ pain Current visit: No Status: Acute Category: Medical Code(s): R10.11 - Right upper quadrant pain (2) Abnormal liver enzymes Current visit: No Status: Acute Category: Medical Code(s): R74.8 - Abnormal levels of other serum enzymes (3) Cholelithiasis Current visit: No Status: Acute Category: Medical Code(s): K80.20 - Ca lculus of gallbladder without cholecystitis without obstruction (4) Gallstone pancreatitis Current visit: Yes Status: Acute Category: Medical Code(s): K85.10 - Biliary acute pancreatitis without necrosis or infection - Assessment and plan all Dx Assessment and Plan for all problems:: She is doing better today. We will plan to send her home after her laparoscopic cholecystectomy. Dr. Leblanc is planning a laparoscopic cholecystectomy later today.
--- NOTE | 2019-03-15 12:37 | Progress Note ---
[facility] Anesthesia Checklist - Patient Identification Patient Identification: Arm Band, Verbal (Name & ) - Structural Data Admitted From: Inpatient Planned Operative Procedure/s: lap choly Consent for Planned Operative Procedure(s) Verified: Yes Verified Documents: History and Physical - NPO Status Verified Time NPO: 00:00 - Additional verifications Patient : No Anesthesia Reactions: No Hx Blood Transfusions: No Blood Transfusion Reaction: No Cephalosporin Allergy: No Previous Colonoscopy: No - Cardiovascular Assessment Heart Sounds: S1 & S2 Pulse Strength: Baseline Pulse Rhythm: Regular Peripheral Edema: No - Airway Assessment C-Spine Mobility Assessed: Yes TMJ Mobility Assessed: Yes Dentition: Good Dentition - Neurological Assessment Level of Consciousness: Awake, Alert, Appropriate Hx Seizures: No Numbness or tingling in extremities: No - Anesthesia Plan Anesthesia Risk discussed: Yes Anesthesia Plan: Verified ASA Class: II Anesthesia Type: General [facility] History I have reviewed the patient's past medical history: Yes Medical History: Reports:: Gall Bladder Disease, Gastroesophageal Reflux Disease(GERD) Denies:: Cancer, Diabetes Mellitus Type 1, Diabetes Mellitus Type 2, MRSA, Seizures *Have you ever received a pneumonia vaccine?: No *Have you received a flu vaccine this season?: No Other Medical History: Reports: Other Laterality Cases: Bilateral: Myringotomy (Ear Tubes), Tonsillectomy Other Surgeries: No: Amputation: No Fractures: No - *Social History Educational Level: Completed High School Smoking Status: Current every day smoker Tobacco Type: cigarettes # Packs/Day (cigarettes): 5 Alcohol Intake: never Substance Use Type: denies use *Occupational Status:: unemployed *Travel in the last 8 weeks: None - Psychiatric History Expresses thoughts of harming self/others: None Suicide Plan Description: No Plan Family Hx:: No significant family history
--- NOTE | 2019-03-15 15:21 | Operative Note ---
Date of procedure: 03/15/19 Pre-op Diagnosis:: Biliary pancreatitis Post-op Diagnosis:: Same Procedure performed:: Laparoscopic cholecystectomy. Intraoperative cholangiogram not completed secondary to likely impacted stones and cystic duct and focal inflammatory response. Surgeon:: Radu Leblanc MD Assistant Product Manager(s):: Kinjal Anesthesia: SHAZIA Estimated blood loss (mL): 25 Operative findings:: Multiple small stones within gallbladder. Cholangiogram catheter not able to be secured in cystic duct likely to area of focal impacted stones with ulysses-ductal inflammatory response. Operative note:: After informed consent was obtained, the patient was taken to the operating room and placed in the supine position. General anesthesia was induced and the abdomen was prepped and draped in a sterile fashion. After infiltration with local anesthetic an infraumbilical incision was made. A Veress needle was placed in position. The abdomen was insufflated. A 5 mm optical trocar was placed in position. Under direct visualization, a 12 mm trocar was placed in the subxiphoid position and 2 additional 5 mm trocars were placed in the right upper quadrant. The gallbladder was elevated up and over the liver margin. The tissue around the cystic duct was carefully dissected. Multiple small stones within the gallbladder were noted. A single clip was placed at the infundibulum. A partial ductal transection was completed with scissors. The cholangiocatheter was placed through a separate right upper quadrant stab in cision by way of introducer. The cholangiogram catheter could not be secured and this was felt to most likely be secondary to a focal area of impacted stones that could not be expressed. Significant focal inflammatory response was also noted and further attempts were deemed unwarranted/unsafe. 3 clips were placed proximally and the duct was transected with harmonic francis. Harmonic francis were then utilized to dissect the gallbladder away from the liver margin with careful attention to the control of the cystic artery. The gallbladder was placed in a retrieval bag and removed through the subxiphoid trocar site. The right upper quadrant was thoroughly irrigated. No active bleeding or bile leak was noted. Fascia at the subxiphoid trocar site was reapproximated utilizing 0 Ethibond. The remaining trocars were removed. All wounds were irrigated and skin was closed with 4-0 Monocryl in a subcuticular fashion. Steri-Strips were applied. The patient's anesthetic agents were reversed and extubation was completed prior to transfer to recovery in stable condition. Condition: stable Disposition: PACU Specimens:: Gallbladder and contents Complications:: No immediate
--- NOTE | 2019-03-15 15:36 | Progress Note ---
[facility] Anesthesia Record Part I Intake, IV Amount: 1,000 Estimated blood loss (mL): 10 Urine output (mL): 0 Blood Products used (#): none Blood Pressure: 120/75 SaO2: 98 Pulse Rate: 76 Respiratory Rate: 20 Temperature: 97.6 F Patient is:: Drowsy, Stable Stable to PACU at:: 15:31
--- NOTE | 2019-03-15 15:37 | Progress Note ---
[facility] Anesthesia Record Part II Discharge Time: 16:01 Destination: Medical Surgical Department PACU nurse assessment reviewed?: Yes Patient Condition:: Good Anesthesia Complications:: None Swallowing reflex intact?: Yes Cyanosis?: No
--- NOTE | 2019-03-16 06:37 | Progress Note ---
Subjective Narrative: She continues to have pain with some right upper quadrant and epigastric pain. Some pain radiating to the back. She states that her most significant pain is incisional. Exam Vital signs and Labs for Last 24 Hours: Temp Pulse Resp BP Pulse Ox 98.8 F 58 L 18 142/83 H 96 03/16/19 04:00 03/16/19 04:00 03/16/19 04:00 03/16/19 04:00 03/16/19 04:00 Laboratory Results - last 24 hr 03/15/19 06:02: Sodium 140, Potassium 3.9, Chloride 104, Carbon Dioxide 29, Anion Gap 10.9, BUN 15, Creatinine 0.80, Estimated Creat Clear 68, Estimated GFR 91, Est GFR ( Amer) 110, Glucose 91, Calcium 8.3 L, Total Bilirubin 0.3, AST 49 H, ALT 89 H, Alkaline Phosphatase 763 H, Total Protein 5.6 L, Albumin 2.5 L, Globulin 3.1, Albumin/Globulin Ratio 0.8 L, Amylase 22 L, Lipase 128 I & O for Last 24 hours: Intake & Output 03/13/19 03/14/19 03/15/19 03/16/19 11:59 11:59 11:59 11:59 Intake Total 870 / 870 3855 / 3855 4498 / 4498 1535 / 1535 Output Total 1000 / 1000 3700 / 3700 2400 / 2400 Balance 870 / 870 2855 / 2855 798 / 798 -865 / -865 Weight 209 lb 7 oz 211 lb 212 lb 1 oz 217 lb 7 oz - Constitutional no acute distress - *Routine Respiratory Exam Absent: respiratory distress - *Routine Abdominal Exam Present: soft Comments: Dressings intact. No erythema. Progress Note: A&P (1) RUQ pain Status: Acute Current Visit: No (2) Abnormal liver enzymes Status: Acute Current Visit: No (3) Cholelithiasis Status: Acute Current Visit: No (4) Gallstone pancreatitis Status: Acute Assessment and plan: Overall, doing fairly well status post laparoscopic cholecystectomy. Intraoperative cholangiogram not able to be performed secondary to apparent impacted cystic duct stones/focal inflammatory changes. Follow-up a.m. labs If she develops hyperbilirubinemia or elevated pancreatic enzymes a gastroen terology consultation for possible ERCP is warranted. If she remains stable and has no biochemical evidence of hyperbilirubinemia/recurrent pancreatitis the risks of ERCP likely outweigh any benefit. Possible discharge home later today if no significant laboratory anomaly noted. She is scheduled for close outpatient follow-up and is to see me on March 19, 2019. Current Visit: Yes
[2019-03-16 06:39] LABS: Hemoglobin 12.7 g/dL (12.2-16.2); Lymphocytes # 0.6 K/mm3 (0.7-4.5); Lymphocytes % 7.2 % (10-50); Mean Corpuscular HGB Conc 32.5 g/dL (31.8-35.4); Mean Corpuscular Volume 92.2 fl (81-99); Mean Platelet Volume 7.3 fl (7.4-10.4); Monocytes # 0.3 K/mm3 (0.1-1.0); Monocytes % 3.1 % (1.7-9.3); Neutrophils % 89.7 % (37.0-80.0); Platelet Count 413 K/mm3 (142-424); Red Blood Count 4.23 M/mm3 (4.20-5.40); Red Cell Distribution Width 12.6 % (11.5-17.5); White Blood Count 8.9 K/mm3 (4.8-10.8)
[2019-03-16 07:03] LABS: Albumin Level 2.8 gm/dL (3.4-5.0); Albumin/Globulin Ratio 0.8 (1.1-1.8); Bilirubin,Total 0.4 mg/dL (0.2-1.0); Calcium 8.8 mg/dL (8.5-10.1); Globulin 3.5 gm/dl (1.3-3.2); Total Protein,Serum 6.3 gm/dL (6.4-8.2)
[2019-03-16 07:48] LABS: Lymphocytes % 6 % (10-50); Monocytes % 2 % (2-9); Neutrophils % 89 % (42-76); RBC Morphology Normal; Total Cells Counted 100
[2019-03-16 08:18] VITALS: BP 148/91
--- NOTE | 2019-03-16 09:12 | Discharge Summary ---
General - General Admission date:: 03/11/19 Discharge date: 03/16/19 HPI HPI: This 19-year-old white female underwent a section on 02/23/[address] Contreras, without apparent complications. She was discharged on 02/26/2019 and was seen by him in his office on 03/08/2019. At that point she had no specific complaints. 2 nights ago, after eating pizza, she developed abdominal pain which worsened and localized to the right upper quadrant. She lives in [place], [place], which is also where her primary physician practices, and so she went to the [facility] emergency room, whence she was admitted to an inpatient bed. She was afebrile, and has remained so. Her lab results include a white count of 10.5 and an H/H of 14.3/42.5. Her platelet count is somewhat elevated, and her liver functions are likewise elevated, she was started on IV Toradol and IV Levaquin (urinalysis suggested a urinary tract infection). CT scan showed her gallbladder to be borderline distended but no stones were visible. The rest of her CT scan is normal except for an elongated fluid collection in the subcutaneous tissues of the lower anterior pelvic wall. However, she has no lower abdominal pain and her lochia is normal. Over the course of the next 24 hours, the patient's pain waxed and waned. I was called by the [facility] emergency room physician and, although there was several miscommunications about the patient's status, he informed me that their general surgeon review the records from a remote location and determined that the patient might have preeclampsia. The patient was told of several possible diagnoses, including hepatitis, pancreatitis, preeclampsia, and pelvic abscess, among others. The ER physician wanted the patient transferred to [facility] because she delivered here and her records are here and he was of the impression that her symptoms related to a condition. Ultimately the patient was brought here by ambulance and admitted to the [facility] floor. Upon admission, she is afebrile and her pain level is relatively low. She appears comfortable. She states that she has a history of "gallbladder issues" prior to the just-concluded . Hospital Course Hospital Course: She initially had improved but then her liver function tests continue to rise. She had an ultrasound that showed multiple gallstones within the gallbladder. She then had an episode of pancreatitis with elevation in her lipase. We suspect that it may have been caused by a small stone in her duct. Today she underwent a laparoscopic cholecystectomy. She still complains of some pain and nausea. I think the nausea may be caused by her Percocets and we have changed these to Lortab. I have also ordered her Zofran as well. We will see how she does for the rest of the morning. We will plan to send her home today. She will be discharged home to follow-up with me in approximately 2 weeks time. She will follow-up with Dr. Leblanc in about 72 hours. We will make arrangements for her to have a Chem-7 as well as amylase and lipase before seeing him in the office next week. He is concerned that she still may have a small stone in the duct. She was given the usual instructions with respect to limiting her activity, driving and sexual activity. She was given a prescription for Lortab 7.5/325 number 30 tablets. He was given a prescription for Zofran 4 mg ODT number 30 tablets. Her condition on discharge is stable and improved. Objective Vital signs: Temp Pulse Resp BP Pulse Ox 98.3 F 52 L 16 148/91 H 98 03/16/19 08:00 03/16/19 08:00 03/16/19 08:00 03/16/19 08:00 03/16/19 08:00 no acute distress, obese - *Routine HEENT Exam Head: Present: normocephalic - *Routine Neck Exam Present: supple - *Routine Abdominal Exam Present: soft Comments: Her incisions are clean and dry. Results Labs on day of discharge: Labs from last 24 hours 03/16/19 03/16/19 05:56 05:56 WBC 8.9 D RBC 4.23 Hgb 12.7 Hct 39.0 MCV 92.2 MCH 30.0 MCHC 32.5 RDW 12.6 Plt Count 413 MPV 7.3 L Neut % (Auto) 89.7 H Lymph % (Auto) 7.2 L [place] % (Auto) 3.1 Eos % (Auto) 0.0 L Baso % (Auto) 0.0 L Neut # (Auto) 8.0 H Lymph # (Auto) 0.6 L [place] # (Auto) 0.3 Eos # (Auto) 0.0 Baso # (Auto) 0.0 Total Counted 100 Neutrophils % (Manual) 89 H Band Neutrophils % 3.0 Lymphocytes % (Manual) 6 L Monocytes % (Manual) 2 Platelet Estimate Normal RBC Morphology Normal Sodium 138 Potassium 4.0 Chloride 103 Carbon Dioxide 26 Anion Gap 13.0 BUN 11 D Creatinine 0.83 Estimated Creat Clear 65 Estimated GFR 87 Est GFR ( Amer) 105 Glucose 169 H D Calcium 8.8 Total Bilirubin 0.4 AST 50 H ALT 80 H Alkaline Phosphatase 680 H Total Protein 6.3 L Albumin 2.8 L D Globulin 3.5 H Albumin/Globulin Ratio 0.8 L Amylase 21 L Lipase 76 DS: Diagnosis - Discharge Diagnosis (1) RUQ pain Status: Acute (2) Abnormal liver enzymes Status: Acute (3) Cholelithiasis Status: Acute (4) Gallstone pancreatitis Status: Acute Discharge Plan - Patient Discharge Instructions ACTIVITY: No heavy lifting DIET: continue same diet, low fat, low cholesterol Patient Instructions: Fat-Restricted Diet, DI for Gallstones, DI for Surgical Site Infection, Cholecystectomy -- Laparoscopic Surgery - Follow up Plan Follow up with: Radu Leblanc MD [Staff Physician] - 03/19/19 () Disposition: Home, [facility] Medications: Home Medications Medication Instructions Recorded Confirmed Type vitamins no.106-iron 27.5 1 cap PO DAILY 07/31/18 03/12/19 History mg-folate no.6 1 mg-dha capsule Ferrous Sulfate 325 mg PO DAILY 02/23/19 03/12/19 History raNITIdine HCl [Ranitidine HCl] 150 mg PO BID 02/23/19 03/12/19 History Hydrocodone/Acetaminophen [Lortab 1 tab PO Q4HP PRN #30 tab 03/16/19 Rx 7.5/325mg tablet] Ondansetron [Zofran 4mg ODT] 4 mg SL Q6HP PRN #30 tab.rapdis 03/16/19 Rx Prescriptions/Medication Reconciliation: New Hydrocodone/Acetaminophen [Lortab 7.5/325mg tablet] 1 tab PO Q4HP PRN #30 tab PRN Reason: Breakthru Moderate Pain Ondansetron [Zofran 4mg ODT] 4 mg SL Q6HP PRN #30 tab.rapdis PRN Reason: Nausea Continued vitamins no.106-iron 27.5 mg-folate no.6 1 mg-dha capsule 1 cap PO DAILY raNITIdine HCl [Ranitidine HCl] 150 mg PO BID Ferrous Sulfate 325 mg PO DAILY
== END 2019-03-16 09:59 | disposition home or self-care (01) | DRG 417 ==
LOC: 2ND → OBSVTOIN 17:46
PROVIDERS: ADMIT Obstetrics & Gynecology; ATTEND Nurse Practitioner Obstetrics & Gynecology
CPT/HCPCS: 36415; 76705; 80048; 80053; 80074; 80076; 82150; 83690; 85007; 85025; J1956

== ENCOUNTER → 2019-03-19 14:15 | Outpatient (CLI) | payer OTHER, SELFPAY ==
[2019-03-19 14:33] LABS: Basophils % 0.4 % (0.1-2.0); Eosinophils # 0.4 K/mm3 (0.0-0.4); Eosinophils % 4.8 % (0.1-12.0); Hematocrit 41.7 % (37.0-47.0); Hemoglobin 13.9 g/dL (12.2-16.2); Lymphocytes # 2.2 K/mm3 (0.7-4.5); Lymphocytes % 24.2 % (10-50); Mean Corpuscular HGB Conc 33.2 g/dL (31.8-35.4); Mean Corpuscular Hemoglobin 30.5 pg (27.0-31.2); Mean Corpuscular Volume 91.8 fl (81-99); Mean Platelet Volume 7.2 fl (7.4-10.4); Monocytes # 0.5 K/mm3 (0.1-1.0); Monocytes % 5.5 % (1.7-9.3); Neutrophils # 5.8 K/mm3 (1.8-7.8); Neutrophils % 65.1 % (37.0-80.0); Platelet Count 411 K/mm3 (142-424); Red Blood Count 4.55 M/mm3 (4.20-5.40); Red Cell Distribution Width 12.6 % (11.5-17.5); White Blood Count 8.9 K/mm3 (4.8-10.8)
[2019-03-19 15:46] LABS: Alanine Aminotransferase 42 U/L (12-78); Albumin Level 3.3 gm/dL (3.4-5.0); Alkaline Phosphatase 421 U/L (46-116); Amylase 24 U/L (25-115); Anion Gap 14.8 mEq/L (5-15); Aspartate Amino Transferase 16 U/L (15-37); Bilirubin,Total 0.4 mg/dL (0.2-1.0); Blood Urea Nitrogen 9 mg/dL (7-18); Carbon Dioxide 26 mmol/L (21.0-32.0); Chloride 102 mmol/L (98-107); Creatinine,Serum 0.66 mg/dL (0.55-1.02); Estimated Glomerular Filt Rate 113 ml/min (>60); GFR (African American) 137 ML/MIN (>60); Globulin 3.4 gm/dl (1.3-3.2); Glucose 92 mg/dL (74-106); Lipase 145 u/L (73-393); Potassium 4.8 mmoL/L (3.5-5.1); Sodium 138 mmol/L (136-145); Total Protein,Serum 6.7 gm/dL (6.4-8.2)
== END ==
PROVIDERS: Visit Provider Surgery
DX: K85.90 Acute pancreatitis without necrosis or infection, unspecified (principal); Z90.49 Acquired absence of other specified parts of digestive tract
CPT/HCPCS: 36415; 80053; 82150; 83690; 85025

== ENCOUNTER → 2023-06-20 13:13 | Outpatient (CLI) | payer OTHER, SELFPAY ==
[2023-06-21 14:19] LABS: Progesterone 9.8 ng/mL (.)
== END ==
PROVIDERS: PCP Family Medicine; Visit Provider Nurse Practitioner Obstetrics & Gynecology
DX: N92.6 Irregular menstruation, unspecified (principal); Z32.00 Encounter for pregnancy test, result unknown
CPT/HCPCS: 36415; 84144; 84702

== ENCOUNTER → 2023-06-23 09:32 | Outpatient (CLI) | payer OTHER, SELFPAY ==
[2023-06-23 14:45] LABS: Basophils % 0.3 % (0.1-2.0); Eosinophils # 0.2 K/mm3 (0.0-0.4); Eosinophils % 3.7 % (0.1-12.0); Hematocrit 40.7 % (37.0-47.0); Hemoglobin 13.4 g/dL (12.2-16.2); Lymphocytes # 1.4 K/mm3 (0.7-4.5); Lymphocytes % 22.4 % (10-50); Mean Corpuscular HGB Conc 32.8 g/dL (31.8-35.4); Mean Corpuscular Volume 94.6 fl (81-99); Mean Platelet Volume 9.5 fl (7.4-10.4); Monocytes # 0.3 K/mm3 (0.1-1.0); Monocytes % 5.7 % (1.7-9.3); Neutrophils # 4.1 K/mm3 (1.8-7.8); Neutrophils % 67.9 % (37.0-80.0); Platelet Count 348 K/mm3 (142-424); Red Cell Distribution Width 12.5 % (11.5-17.5)
[2023-06-24 12:16] LABS: HIV Screen 4th Generation wRfx Non Reactive (Non Reactive); Rapid Plasma Reagin Ab Titer Non Reactive (NonRea<1:1); Rubella Antibodies, IgG 1.01 index (Immune >0.99)
[2023-07-07 09:58] LABS: Hepatitis B Surface Antigen Negative
[2023-07-07 09:59] LABS: Hepatitis C Antibody Non Reactive
== END ==
PROVIDERS: PCP Family Medicine; Visit Provider Nurse Practitioner Obstetrics & Gynecology
DX: Z34.91 Encounter for supervision of normal pregnancy, unspecified, first trimester (principal); Z3A.11 11 weeks gestation of pregnancy
CPT/HCPCS: 36415; 85025; 86593; 86703; 86762; 86850; 87086; 87340; 87380; G0432

== ENCOUNTER → 2023-07-04 13:40 | Outpatient (CLI) | payer MEDICAID, SELFPAY ==
--- NOTE | 2023-07-04 13:40 | US_ITS ---
PROCEDURE: US OB <= 14 WEEKS FETUS CLINICAL INDICATION: for dates COMPARISON: No exams were available for comparison FINDINGS: Transvaginal sonographic images of the pelvis were obtained. From her last menstrual period she is 12weeks 4days. An intrauterine gestational sac is present with a pole with a crown-rump length of 4.47cm correlating to gestational age of 11weeks 3days. heart tones are present with an FHR of 165bpm. Yolk sac is noted. The yolk sac measures 7.6mm. The cervix measures 3.6 cm. The right ovary is seen and appears normal. It measures 2.5 cm x 2.8 cm x 2.0 cm. Within the right ovary there is a 1.5 cm corpus luteum. The left ovary is seen and appears normal. It measures 1.8 cm x 1.1 cm x 2.0 cm There is no fluid in the cul-de-sac. IMPRESSION: 1. Viable fetus within the uterine cavity with heart rate activity. 2. The crown-rump length correlates to a gestational age of 11 weeks and 3 days. 3. From her last menstrual period dates are off by approximately 1 week. 4. Her revised due date will be January 20, 2024. 5. Both ovaries appear normal and there is a corpus luteum on the right ovary. Dictated by: Boogie Contreras MD 07/04/2023 18:05 Boogie Contreras MD in [facility] 07/04/2023 18:05
== END ==
PROVIDERS: PCP Family Medicine; Visit Provider Nurse Practitioner Obstetrics & Gynecology
DX: Z34.91 Encounter for supervision of normal pregnancy, unspecified, first trimester (principal); Z3A.11 11 weeks gestation of pregnancy
CPT/HCPCS: 76801

== ENCOUNTER → 2023-09-05 15:04 | Outpatient (CLI) | payer MEDICAID, SELFPAY ==
--- NOTE | 2023-09-05 15:10 | US_ITS ---
PROCEDURE: US OB /MATERNAL DETAIL CLINICAL INDICATION: 20 week anatomy scan COMPARISON: No exams were available for comparison FINDINGS: Transabdominal sonographic images of the pelvis were obtained. From her established due date she is 20 weeks 3 days. Single viable intrauterine gestation. Cephalic position. Placenta: Posteriorplacenta grade 1. There is an average amount of fluid. The cervix appears satisfactory. Closed and measuring 3.1 cm in length. Complete survey performed and was unremarkable on the submitted images as in PACS. No discrete anomalies identified on survey imaging by technologist. Active fetus. Three-vessel cord with satisfactory umbilical cord insertion. 4- chamber heart noted. Situs, aortic arch, LVOT, RVOT, three-vessel view appear normal. Survey of brain & ventricles Unremarkable. Cerebellum, cisterna magna, choroid plexus, thalamus appear normal. Face and neck survey unremarkable. Profile, nasion, nose and lips appear normal. Diaphragm and chest views unremarkable. Abdomen: Both kidneys noted and unremarkable. Stomach and bladder noted and satisfactory. Spine: Survey of the spine satisfactory with no anomalies identified nor imaged. Cervical, thoracic and lower spine appear normal. Both arms and legs noted. Amniotic Fluid: Adequate. Measurements: Average ultrasound age 20weeks 3days. Estimated due date by ultrasound age 0301/20/2024. Estimated weight 339g BPD = 20weeks 4days HC = 20weeks 2days AC = 20weeks 2days FL = 20weeks 1day Growth Percentile= 33rd Heart Rate = 134bpm Cerebellum = 20weeks 5days Humerus = 20weeks 6days HC/AC is 1.18 FL/BPD is 0.68 FL/AC is 0.22 IMPRESSION: 1. Viable fetus in the cephalic presentation with a posterior placenta grade 1. 2. The anatomical scan appears normal. 3. biometry is consistent with dates. Dictated by: Boogie Contreras MD 09/05/2023 19:02 Boogie Contreras MD in [facility] 09/05/2023 19:02
== END ==
PROVIDERS: PCP Family Medicine; Visit Provider Nurse Practitioner Obstetrics & Gynecology
DX: Z34.92 Encounter for supervision of normal pregnancy, unspecified, second trimester (principal); Z3A.20 20 weeks gestation of pregnancy
CPT/HCPCS: 76811

== ENCOUNTER → 2023-10-13 08:59 | Outpatient (CLI) | payer MEDICAID, SELFPAY ==
[2023-10-13 09:57] LABS: Basophils % 0.2 % (0.1-2.0); Eosinophils # 0.1 K/mm3 (0.0-0.4); Eosinophils % 1.7 % (0.1-12.0); Hematocrit 36.7 % (37.0-47.0); Hemoglobin 12.5 g/dL (12.2-16.2); Lymphocytes # 1.4 K/mm3 (0.7-4.5); Lymphocytes % 19.3 % (10-50); Mean Corpuscular HGB Conc 33.9 g/dL (31.8-35.4); Mean Corpuscular Hemoglobin 32.6 pg (27.0-31.2); Mean Platelet Volume 7.9 fl (7.4-10.4); Monocytes # 0.3 K/mm3 (0.1-1.0); Monocytes % 3.9 % (1.7-9.3); Neutrophils # 5.6 K/mm3 (1.8-7.8); Neutrophils % 74.9 % (37.0-80.0); Platelet Count 271 K/mm3 (142-424); Red Blood Count 3.82 M/mm3 (4.20-5.40); Red Cell Distribution Width 13.2 % (11.5-17.5); White Blood Count 7.4 K/mm3 (4.8-10.8)
[2023-10-13 09:59] LABS: Basophils % 0.2 % (0.1-2.0); Eosinophils # 0.1 K/mm3 (0.0-0.4); Eosinophils % 1.8 % (0.1-12.0); Glucose,Fasting 97 mg/dl (74-100); Hematocrit 36.5 % (37.0-47.0); Hemoglobin 12.4 g/dL (12.2-16.2); Lymphocytes # 1.4 K/mm3 (0.7-4.5); Lymphocytes % 19.2 % (10-50); Mean Corpuscular Hemoglobin 32.6 pg (27.0-31.2); Mean Corpuscular Volume 95.8 fl (81-99); Mean Platelet Volume 8.2 fl (7.4-10.4); Monocytes # 0.3 K/mm3 (0.1-1.0); Monocytes % 3.7 % (1.7-9.3); Neutrophils # 5.5 K/mm3 (1.8-7.8); Neutrophils % 75.1 % (37.0-80.0); Platelet Count 295 K/mm3 (142-424); Red Blood Count 3.81 M/mm3 (4.20-5.40); Red Cell Distribution Width 13.2 % (11.5-17.5); White Blood Count 7.4 K/mm3 (4.8-10.8)
[2023-10-13 10:54] LABS: Erythrocyte Sedimentation Rate 40 mm/hr (0-20)
[2023-10-13 11:02] LABS: Chloride 104 mmol/L (98-107); Potassium 4.2 mmoL/L (3.5-5.1); Sodium 133 mmol/L (136-145)
[2023-10-13 11:04] LABS: Blood Urea Nitrogen 6 mg/dl (7-17); Estimated Glomerular Filt Rate 194 ml/min (>60); GFR (African American) 235 ML/MIN (>60)
[2023-10-13 11:05] LABS: Alanine Aminotransferase 9 U/L (12-78); Albumin Level 3.3 g/dl (3.5-5.0); Albumin/Globulin Ratio 1.3 (1.1-1.8); Alkaline Phosphatase 105 U/L (38-126); Anion Gap 8.2 mEq/L (5-15); Aspartate Amino Transferase 19 U/L (14-36); Bilirubin,Total 0.4 mg/dl (0.2-1.3); Calcium 7.9 mg/dl (8.4-10.2); Carbon Dioxide 25 mmol/L (22.0-30.0); Globulin 2.5 g/dL (1.3-3.2); Glucose 91 mg/dl (74-100); Total Protein,Serum 5.8 g/dl (6.3-8.2)
[2023-10-13 11:37] LABS: Thyroid Stimulating Hormone 1.66 uIU/mL (0.465-4.68)
[2023-10-13 12:12] LABS: Uric Acid 3.1 mg/dl (2.5-6.2)
[2023-10-13 13:02] LABS: Vitamin B12 287 pg/mL (239-931)
[2023-10-13 13:49] LABS: Folate 7.58 ng/mL
[2023-10-13 14:11] LABS: Glucose 1 Hour 136 mg/dL (74-100)
[2023-10-14 12:28] LABS: RA Latex Turbid. 16.1 IU/mL (<14.0)
[2023-10-14 13:23] LABS: Anti-Centromere B Antibodies <0.2 AI (0.0-0.9); Anti-DNA (DS) Ab Qn <1 IU/mL (0-9); Anti-Jo-1 <0.2 AI (0.0-0.9); Anti-Smith Antibody <0.2 AI (0.0-0.9); Antichromatin Antibodies <0.2 AI (0.0-0.9); Antiscleroderma-70 Antibodies <0.2 AI (0.0-0.9); RNP Antibodies <0.2 AI (0.0-0.9); Sjogren's Anti-SS-A <0.2 AI (0.0-0.9); Sjogren's Anti-SS-B <0.2 AI (0.0-0.9)
[2023-10-14 15:38] LABS: Anti-Cardiolipin Antibody IgG <9 GPL U/mL (0-14)
[2023-10-16 17:46] LABS: Antinuclear Antibodies, IFA Negative (.)
[2023-10-19 11:13] LABS: APTT 25.9 sec (.); Anti-Cardiolipin Antibody IgG <10 GPL (.); Anti-Cardiolipin Antibody IgM <10 MPL (.); Beta-2 Glycoprotein I Ab, IgA <10 SAU (.); Beta-2 Glycoprotein I Ab, IgG <10 SGU (.); Beta-2 Glycoprotein I Ab, IgM <10 SMU (.); Hexagonal Phase Phospholipid 2 sec (.); INR 0.9 ratio (.); Prothrombin Time 9.7 sec (.); Thrombin Time 16.1 sec (.)
== END ==
LOC: LAB 09:00
PROVIDERS: Specialist; PCP Family Medicine; Visit Provider Nurse Practitioner Obstetrics & Gynecology
DX: O26.892 Other specified pregnancy related conditions, second trimester (principal); Z3A.23 23 weeks gestation of pregnancy; H54.3 Unqualified visual loss, both eyes; R20.0 Anesthesia of skin; R51.9 Headache, unspecified
CPT/HCPCS: 36415; 80053; 82607; 82746; 82951; 84443; 84550; 85025; 85597; 85598; 85610; 85613; 85651; 85670; 85730; 86038; 86146; 86147; 86225; 86235; 86431

== ENCOUNTER 2023-11-21 14:04 | Outpatient (CLI) | payer MEDICAID, SELFPAY ==
--- NOTE | 2023-11-21 14:11 | US_ITS ---
PROCEDURE: US OB BIOPHYSICAL PROFILE CLINICAL INDICATION: lga COMPARISON: Ultrasound 09/05/2023 FINDINGS: Transabdominal sonographic images of the uterus were obtained. From her established due date she is 31weeks 3days. The following parameters are obtained: Viable fetus in the cephalic presentation with a fundal placenta grade 1 Average ultrasound age is 31weeks 5days. Estimated due date by ultrasound is 01/18/2024. Estimated weight is 3lb 14.89oz. Cervix measures 3.0 cm. heart rate: 132bpm BPD: 32 weeks 0 days OFD: 31weeks 5days HC: 31 weeks 5 days AC: 31 weeks 3 days FL: 31 weeks 4 days HC/AC: 1.05 Cephalic index: 0.78 FL/BPD: 0.76 FL/AC: 0.22 41 percentile Amniotic fluid index: 10.82 cm, MVP 4.19 cm. Qualitative AFV: 2 breathing movements: 0 Gross body movements: 2 Tone: 2 Biophysical profile score: 6 No obvious anomalies evident.Kidneys, bladder, stomach, three-vessel cord appear normal. IMPRESSION: 1. Viable fetus in the cephalic presentation with a fundal placenta grade 1. 2. The fluid is within normal limits with an amniotic fluid index of 10.82 cm, MVP 4.19 cm. 3. Biophysical profile is 6/8 with no breathing movement seen. The fetus is however active. 4. There has been good interval growth with the fetus currently 41st percentile. 5. Patient will be sent to physician's office for NST. Dictated by: Boogie Contreras MD 11/21/2023 16:15 Boogie Contreras MD in [facility] 11/21/2023 16:15
== END 2023-11-21 23:59 ==
LOC: RAD 14:05
PROVIDERS: PCP Family Medicine; Visit Provider Obstetrics & Gynecology
DX: O36.63X0 Maternal care for excessive fetal growth, third trimester, not applicable or unspecified (principal); Z3A.31 31 weeks gestation of pregnancy
CPT/HCPCS: 76816; 76819

== ENCOUNTER 2023-12-14 14:49 | Outpatient (CLI) | payer MEDICAID, SELFPAY ==
--- NOTE | 2023-12-14 14:51 | US_ITS ---
PROCEDURE: US OB BIOPHYSICAL PROFILE CLINICAL INDICATION: lga COMPARISON: US US OB BIOPHYSICAL PROFILE from 11/21/2023 FINDINGS: Transabdominal sonographic images of the uterus were obtained. From her established due date she is 34weeks 5days. The following parameters are obtained: Viable Fetus in the cephalic presentation with a posterolateral placenta grade 2. Average ultrasound age is 35weeks 0 days Estimated weight 2,555g Cervix measures 3.8 cm. Measurements: heart Rate = 140bpm BPD = 34weeks 5days, 49 percentile HC = 35weeks 4days, 36 percentile AC = 35weeks 1day, 67 percentile FL = 34weeks 4days, 37 percentile HC/AC is 1.02 FL/BPD is 0.78 FL/AC is 0.22 53 percentile Amniotic fluid index: 12.13cm, MVP 4.4 cm. Qualitative AFV:2 Breathing movements: 2 Gross Body Movements: 2 Tone: 2 Biophysical profile score: 8 No obvious anomalies evident.Kidneys, profile, nasion, bladder, stomach, four-chamber heart, three-vessel cord appear normal. IMPRESSION: 1. Viable fetus in the cephalic presentation with a posterolateral placenta grade 2. 2. The fluid is within normal limits with an amniotic fluid index of 12.13 cm, MVP 4.4 cm. 3. Biophysical profile 06/21 with good breathing movement and movement seen. 4. There has been good interval growth with the fetus currently 53rd percentile. Dictated by: Boogie Contreras MD 12/14/2023 16:40 Boogie Contreras MD in [facility] 12/14/2023 16:40
== END 2023-12-14 23:59 ==
LOC: RAD 14:49
PROVIDERS: PCP Family Medicine; Visit Provider Nurse Practitioner Obstetrics & Gynecology
DX: O36.63X0 Maternal care for excessive fetal growth, third trimester, not applicable or unspecified (principal); Z3A.34 34 weeks gestation of pregnancy
CPT/HCPCS: 76816; 76819

== ENCOUNTER 2023-12-21 16:47 | Outpatient (CLI) | payer MEDICAID, SELFPAY | END 2023-12-21 23:59 | LOC: LAB.DROPOF 16:47 | PROVIDERS: PCP Nurse Practitioner Obstetrics & Gynecology; Visit Provider Nurse Practitioner Obstetrics & Gynecology | DX: Z34.93 Encounter for supervision of normal pregnancy, unspecified, third trimester (principal); Z3A.34 34 weeks gestation of pregnancy | CPT/HCPCS: 86403 ==

== ENCOUNTER 2024-01-05 17:38 | Outpatient (CLI) | payer MEDICAID, SELFPAY ==
[2024-01-05 18:07] VITALS: BP 113/74; PULSE 113; RESP 16; TEMP 36.5; O2SAT 98; BMI 48.9
[2024-01-05 18:26] LABS: Microscopic, Urine URINE MICROSCOPIC (MICROSCOPIC)
[2024-01-05 19:12] LABS: Appearance,Urine CLEAR (Clear); Blood, Urine Negative (Negative); Color,Urine YELLOW (Yellow); Glucose,Urine (UA) Negative (Negative); Ketones,Urine 3+ (Negative); Leukocyte Esterase,Urine Negative (Negative); Nitrate,Urine Negative (Negative); Protein,Urine Negative (Negative); Specific Gravity, Urine 1.015 (1.005-1.030); Urobilinogen,Urine 0.2 EU/dl (0.2)
[2024-01-05 19:22] LABS: Barbiturates Screen,Urine Negative ng/ml (<200)
[2024-01-05 19:23] LABS: Amphetamine/Metha Screen,Urine Negative ng/ml (<1000); Benzodiazepines Screen,Urine Negative ng/ml (<200)
[2024-01-05 19:24] LABS: Bilirubin,Urine 1+ (Negative); Cannabinoid Screen,Urine Positive ng/ml (<50); Cocaine Screen,Urine Negative ng/ml (<300)
[2024-01-05 19:25] LABS: Methadone Screen,Urine Negative ng/ml (<300)
[2024-01-05 19:26] LABS: Opiate Screen,Urine Negative ng/ml (<300)
[2024-01-05 19:27] LABS: Phencyclidine Screen,Urine Negative ng/ml (<25)
[2024-01-05 19:29] LABS: Mucus,Urine 1+ /lpf; WBC,Urine Occasional #/hpf (0-3)
[2024-01-05] MEDS: ONDANSETRON 4MG ODT 4 MG SL (19:47)
== END 2024-01-05 20:18 | disposition home or self-care (01) ==
LOC: OBOUT 17:41 → OB 17:42
PROVIDERS: PCP Family Medicine; Visit Provider Nurse Practitioner Obstetrics & Gynecology
DX: O26.893 Other specified pregnancy related conditions, third trimester (principal); Z3A.37 37 weeks gestation of pregnancy
CPT/HCPCS: 80307; 81001

== ENCOUNTER 2024-01-16 04:42 | Inpatient (IN) | payer MEDICAID, SELFPAY ==
[2024-01-16 04:46] VITALS: BMI 49.9
[2024-01-16 04:53] VITALS: BP 147/82; PULSE 107; RESP 18; TEMP 36.9; O2SAT 96; BMI 50.1
[2024-01-16] MEDS: LACTATED RINGERS 1000ML 1,000 ML 25 ML IV (05:15)
[2024-01-16 05:18] LABS: Microscopic, Urine URINE MICROSCOPIC (MICROSCOPIC)
[2024-01-16 05:20] LABS: Basophils # 0.1 K/mm3 (0-0.2); Basophils % 0.9 % (0.1-2.0); Eosinophils # 0.1 K/mm3 (0.0-0.4); Eosinophils % 1.2 % (0.1-12.0); Hematocrit 42.1 % (37.0-47.0); Hemoglobin 13.6 g/dL (12.2-16.2); Lymphocytes # 2.1 K/mm3 (0.7-4.5); Lymphocytes % 25.7 % (10-50); Mean Corpuscular HGB Conc 32.3 g/dL (31.8-35.4); Mean Corpuscular Hemoglobin 30.8 pg (27.0-31.2); Mean Corpuscular Volume 95.2 fl (81-99); Mean Platelet Volume 8.7 fl (7.4-10.4); Monocytes # 0.5 K/mm3 (0.1-1.0); Monocytes % 5.9 % (1.7-9.3); Neutrophils # 5.5 K/mm3 (1.8-7.8); Neutrophils % 66.3 % (37.0-80.0); Platelet Count 272 K/mm3 (142-424); Red Blood Count 4.42 M/mm3 (4.20-5.40); Red Cell Distribution Width 13.6 % (11.5-17.5); White Blood Count 8.3 K/mm3 (4.8-10.8)
[2024-01-16 05:22] LABS: Appearance,Urine SL CLOUDY (Clear); Blood, Urine Negative (Negative); Color,Urine YELLOW (Yellow); Glucose,Urine (UA) Negative (Negative); Ketones,Urine Negative (Negative); Leukocyte Esterase,Urine Negative (Negative); Nitrate,Urine Negative (Negative); Protein,Urine Negative (Negative); Specific Gravity, Urine 1.025 (1.005-1.030)
[2024-01-16 05:23] LABS: Bilirubin,Urine 1+ (Negative)
[2024-01-16 05:33] LABS: Alanine Aminotransferase 19 U/L (12-78); Albumin Level 3.2 g/dl (3.5-5.0); Albumin/Globulin Ratio 1.1 (1.1-1.8); Alkaline Phosphatase 389 U/L (38-126); Anion Gap 10.6 mEq/L (5-15); Aspartate Amino Transferase 32 U/L (14-36); Benzodiazepines Screen,Urine Negative ng/ml (<200); Bilirubin,Total 0.5 mg/dl (0.2-1.3); Blood Urea Nitrogen 3 mg/dl (7-17); Calcium 8.3 mg/dl (8.4-10.2); Carbon Dioxide 21 mmol/L (22.0-30.0); Chloride 108 mmol/L (98-107); Creatinine Clearance Estimated 105 mL/min (50-200); Estimated Glomerular Filt Rate 150 ml/min (>60); GFR (African American) 182 ML/MIN (>60); Globulin 2.8 g/dL (1.3-3.2); Glucose 104 mg/dl (74-100); Potassium 3.6 mmoL/L (3.5-5.1); Sodium 136 mmol/L (136-145)
[2024-01-16 05:36] LABS: Cannabinoid Screen,Urine Positive ng/ml (<50)
[2024-01-16 05:39] LABS: Phencyclidine Screen,Urine Negative ng/ml (<25)
[2024-01-16 05:42] LABS: Barbiturates Screen,Urine Negative ng/ml (<200)
[2024-01-16 05:46] LABS: Amphetamine/Metha Screen,Urine Negative ng/ml (<1000)
[2024-01-16 05:47] LABS: Opiate Screen,Urine Negative ng/ml (<300)
[2024-01-16 06:04] LABS: Cocaine Screen,Urine Negative ng/ml (<300); Methadone Screen,Urine Negative ng/ml (<300)
[2024-01-16 06:38] LABS: Bacteria,Urine Trace /lpf
--- NOTE | 2024-01-16 07:07 | P.PNANES_ITS ---
[facility] Disclaimer: The information contained in this section may have been updated after the patient was seen, as this information can be updated by other users. Medical History Hypoglycemia Psoriasis Rheumatoid arthritis Size of fetus inconsistent with dates, antepartum Surgical History History of delivery S/P cholecystectomy Family History Grandfather Cancer Grandmother Diabetes Kidney disease Father Stroke Social History (Updated 01/16/24 @ 05:41 by Sabine Garzon RN) Smoking Status: Current every day smoker tobacco type: cigarettes packs per day: 5 alcohol intake: never substance use type: denies use current occupational status: unemployed Travel in the last 8 weeks: None [facility] Anesthesia Checklist Patient Identification Patient Identification: Verbal (Name & ) Structural Data Admitted From: Inpatient Planned Operative Procedure/s: c/section Consent for Planned Operative Procedure(s) Verified: Yes NPO Status Verified Time NPO: 00:00 Additional verifications Anesthesia Reactions: No Hx Blood Transfusions: No Blood Transfusion Reaction: No Airway Assessment Mallampati Score:: Class II C-Spine Mobility Assessed: Yes TMJ Mobility Assessed: Yes Dentition: Good Dentition Neurological Assessment Level of Consciousness: Awake, Alert and Appropriate Anesthesia Plan Anesthesia Risk discussed: Yes Anesthesia Plan: Verified ASA Class: II Anesthesia Type: Spinal
--- NOTE | 2024-01-16 07:23 | P.CONPHA_ITS ---
Pharmacy Intervention Comments: MEDICATION RECONCILIATION COMPLETED ON PATIENT USING EXTERNAL FILL HISTORY FROM PHARMACY AND LIST FROM WATER ENGINEER OFFICE. -DEVON CHISHOLMD
--- NOTE | 2024-01-16 07:23 | HMH.PHAINT1 ---
Pharmacy Intervention Comments: MEDICATION RECONCILIATION COMPLETED ON PATIENT USING EXTERNAL FILL HISTORY FROM PHARMACY AND LIST FROM TECHNOLOGY SALES CONSULTANT OFFICE. -DEVON CHISHOLMD
[2024-01-16] MEDS: CLINDAMYCIN PHOSPHATE/D5W 900 MG/50 ML PIGGYBACK 106 MG IV (07:25)
[2024-01-16] MEDS: LEVOFLOXACIN/D5W 500 MG/100 ML PIGGYBACK 100 MG IV (07:59)
--- NOTE | 2024-01-16 08:33 | P.OP_ITS ---
Date of procedure: 01/16/24 Pre-op Diagnosis:: Term , previous section, desire for sterilization Post-op Diagnosis:: Term , previous section, desire for sterilization Procedure performed:: Repeat lower segment transverse section and bilateral salpingectomy. Surgeon:: Boogie Contreras MD Care Consultant(s):: Dr. Mckeon INSURANCE VERIFICATION REP:: Other (Zuleyka Rodriguez) Anesthesia: spinal Estimated blood loss (mL): 400 Clinical Note:: She is a 23-year-old 2 para 1 at 39 weeks gestational age. She had a previous section and as result of that was offered repeat lower segment transverse section at term. She also expressed desire for sterilization. The risks and benefits of surgery as well as the irreversibility of bilateral salpingectomy were discussed with patient prior to surgery. Operative findings:: She delivered a liveborn male child at 7:54 AM on the morning of January 16, 2024. Baby had Apgars of 9 at 1 minute and 9 at 5 minutes. Ovaries and tubes appeared normal. Operative note:: She was taken to the operating room where spinal anesthesia was found be adequate. She was prepped and draped in normal sterile fashion in the supine position with a leftward tilt. A Page catheter was in the bladder. We had applied a pannnie retractor to her abdomen. A Pfannenstiel skin incision was made with knife then carried through to the underlying layer of fascia with cautery. The fascia was opened in the midline with cautery and extended laterally using Vergara scissors. Ysabel clamps were applied to the superior aspect of the fascial incision which was tented up and the underlying rectus muscles dissected off using cautery. The Ysabel clamps were then applied to the inferior aspect of the fascial incision which in a similar fashion was tented up and the underlying rectus muscles dissected off using cautery. The rectus muscles were then in the midline, the peritoneum identified, and entered sharply with Metzenbaum scissors. This incision was then extended superiorly and inferiorly with cautery. We had good visualization of the bladder inferiorly. The bladder peritoneum was then opened in the midline and extended laterally using Metzenbaum scissors. A bladder flap was created digitally. We then inserted an Kush retractor. Transverse incision was made through the uterine muscle to the amnion. This incision was then extended laterally using fingers traction. The amnion was entered sharply with knife. There was clear amniotic fluid. The infant's head was then delivered atraumatically. This was followed by the anterior shoulder and the rest of the infant's body atraumatically. The oropharynx and nasopharynx were bulb suctioned. The infant was vigorous so we allowed the cord to continue to pulsate for approximately 1 minute. The cord was then doubly And cut. The infant was then handed off to nurses who assigned Apgars of 9 at 1 minute and 9 at 5 minutes. We then obtained cord blood. Using gentle traction on the cord and countertraction on the fundus I was able to easily deliver the placenta intact. It had a normal three-vessel cord. The uterus was then cleared of clots and debris . The uterine incision was then closed using running 0 Vicryl suture in a locked fashion. A second layer of the same suture was used to imbricate the first layer. The bladder peritoneum was then closed using running 2-0 Vicryl suture in a locked fashion. The gutters and cul-de-sac were then cleared of clots and debris . Once again hemostasis was assured. We then performed a bilateral salpingectomy. The distal end of the tube was grasped with a Martha and using the endoseal I cut through the mesosalpinx. I then cut across the tube close to the cornua. This was similarly performed on the opposite side. Tubes were sent to pathology. After once again assuring hemostasis the uterus was then returned to the abdominal cavity. The peritoneum was grasped with Genesis clamps and closed using running 2-0 Vicryl suture. The rectus muscles were then reapproximated using running 0 Vicryl suture. The fascia was closed using running #1 Vicryl suture. The subcutaneous tissues were then irrigated with warm water followed by closure Sara's fascia using running 2-0 Monocryl suture. The skin was closed with dissolvable shell. I then cleaned the skin with Hibiclens. Steri-Strips were then applied. Sterile dressings were applied. Anesthesia then performed a T AP block. She tolerated the procedure well and was taken to labor and delivery in excellent condition. All sponges, instrument and needle counts were correct. Estimated blood loss was approximately 400 mL. Condition: stable Disposition: other (Labor and delivery) Specimens:: Bilateral fallopian tubes Complications:: None
--- NOTE | 2024-01-16 08:40 | P.HP_ITS ---
History of Present Illness *Admission Date: 01/16/24 *Reason for visit:: Previous section, term , desire for sterilization. *History of present illness: She is a 23-year-old 2 para 1 at 39 weeks gestational age. She has had a previous section and as a result of that was offered repeat lower segment transverse section at term. She also expressed desire for sterilization. The risks and benefits as well as the irreversibility of bilateral salpingectomy were discussed with the patient prior to surgery. A positive blood Rubella immune GBS negative PFSH PFS Disclaimer: The information contained in this section may have been updated after the patient was seen, as this information can be updated by other users. Medical History Hypoglycemia Psoriasis Rheumatoid arthritis Size of fetus inconsistent with dates, antepartum Surgical History History of delivery S/P cholecystectomy Family History Diabetes Grandmother Kidney disease Grandmother Cancer Grandfather Stroke Father Social History Smoking Status: Current every day smoker tobacco type: cigarettes packs per day: 5 alcohol intake: never substance use type: denies use current occupational status: unemployed Travel in the last 8 weeks: None Review of Systems Review of Systems Review of systems:: pertinent systems reviewed and negative unless documented below Meds Home Medications and Allergies Home Medications Medication Instructions Recorded Confirmed Type vits no.126-ferrous fum 1 tab PO DAILY Supplement 06/23/23 01/16/24 History 28 mg iron-folic acid 800 mcg tablet (Classic ) ondansetron 4 mg disintegrating 4 mg PO Q6HP PRN nausea and 01/16/24 01/16/24 History tablet vomiting New Prescriptions to Start Prescriptions: Allergies Allergy/AdvReac Type Severity Reaction Status Date / Time Penicillins Allergy Mild Hives Verified 01/11/24 14:15 amoxicillin AdvReac Verified 01/11/24 14:15 Exam Data for Last 24 hours Vital signs and Labs for Last 24 Hours: Temp Pulse Resp BP Pulse Ox O2 Del Method 98.5 F 107 H 18 147/82 H 96 Room Air 01/16/24 04:53 01/16/24 04:53 01/16/24 04:53 01/16/24 04:53 01/16/24 04:53 01/16/24 04:53 Laboratory Results - last 24 hr 01/16/24 05:08: WBC 8.3, RBC 4.42, Hgb 13.6, Hct 42.1, MCV 95.2, MCH 30.8, MCHC 32.3, RDW 13.6, Plt Count 272, MPV 8.7, Neut % (Auto) 66.3, Lymph % (Auto) 25.7, [place] % (Auto) 5.9, Eos % (Auto) 1.2, Baso % (Auto) 0.9, Neut # (Auto) 5.5, Lymph # (Auto) 2.1, [place] # (Auto) 0.5, Eos # (Auto) 0.1, Baso # (Auto) 0.1, Sodium 136, Potassium 3.6, Chloride 108 H, Carbon Dioxide 21 L, Anion Gap 10.6, BUN 3 L , Creatinine 0.50 L, Estimated Creat Clear 105, Estimated GFR 150, Est GFR ( Amer) 182, Glucose 104 H, Calcium 8.3 L, Total Bilirubin 0.5, AST 32, ALT 19, Alkaline Phosphatase 389 H, Total Protein 6.0 L, Albumin 3.2 L, Globulin 2.8, Albumin/Globulin Ratio 1.1, Urine Color Yellow, Urine Appearance Sl cloudy, Urine pH 6.0, Ur Specific [place] 1.025, Urine Protein Negative, Urine Glucose (UA) Negative, Urine Ketones Negative, Urine Blood Negative, Urine Nitrate Negative, Urine Bilirubin 1+ A, Urine Urobilinogen 1.0, Ur Leukocyte Esterase Negative, Urine RBC None, Urine WBC None, Ur Squamous Epith Cells 10-20, Urine Bacteria Trace, Urine Opiates Screen Negative, Urine Methadone Screen Negative, Ur Barbituates Screen Negative, Ur Phencyclidine Scrn Negative, Ur Amphetamines Screen Negative, U Benzodiazepines Scrn Negative, Urine Cocaine Screen Negative, U Marijuana (THC) Screen Positive H, Blood Type A Positive, Antibody Screen Negative, Crossmatch (AHG) See Detail I & O for Last 24 hours: Intake & Output 01/13/24 01/14/24 01/15/24 01/16/24 11:59 11:59 11:59 11:59 Weight 239 lb 0.015 oz Constitutional Constitutional: no acute distress *Routine HEENT Exam Head: Present normocephalic Eye: Present EOMI and PERRL ENT: Present mucous membranes moist *Routine Neck Exam Neck: Present supple; Absent lymphadenopathy *Routine Respiratory Exam Respiratory: Present CTA bilaterally *Routine Cardiovascular Exam Cardiovascular: Present RRR *Routine Abdominal Exam Abdominal: Present soft and normoactive bowel sounds; Absent tenderness *Routine Rectal Exam Rectal:: deferred *Routine Genitalia Exam Genitalia:: deferred *Routine Extremities Exam Extremities: Absent cyanosis, clubbing or edema *Routine Skin Exam Skin: Present warm; Absent rash *Routine Neurological Exam Neurological: Present alert and oriented X3 Assessment and Plan *Assessment and plan (1) History of delivery: Status: Acute Category: Surgical Code(s): Z98.891 - History of uterine scar from previous surgery (2) Admission for sterilization: Status: Acute Category: Medical Code(s): Z30.2 - Encounter for sterilization (3) Maternal obesity affecting , antepartum: Status: Acute Qualifiers: Obesity type affecting : other obesity due to excess calories Qualified Code(s): O99.210 - Obesity complicating , unspecified trimester; E66.09 - Other obesity due to excess calories Category: Medical Code(s): O99.210 - Obesity complicating , unspecified trimester (4) delivery delivered: Status: Acute Category: Medical Code(s): O82 - Encounter for delivery without indication Plan She is admitted for repeat lower segment transverse section and bilater al salpingectomy.
[2024-01-16 08:43] VITALS: BP 120/74; PULSE 76; RESP 16; TEMP 36; O2SAT 100
[2024-01-16 08:53] VITALS: BP 114/73; PULSE 87; RESP 16; O2SAT 100
[2024-01-16 09:03] VITALS: BP 121/82; PULSE 93; RESP 20; TEMP 36.5; O2SAT 100
--- NOTE | 2024-01-16 09:08 | P.PNANES_ITS ---
[facility] Anesthesia Record Part I Anesthesia Record I Intake, IV Amount: 1,200 Hydration: Adequate Estimated blood loss (mL): 400 Urine output (mL): 150 Blood Products used (#): none Blood Pressure: 120/74 SaO2: 100 Pulse Rate: 94 Airway Patency: Patent Respiratory Rate: 16 Temperature: 96.8 F Patient is:: Awake (talking) and Stable Stable to PACU at:: 08:48
[2024-01-16 09:09] VITALS: BP 120/74; PULSE 94; RESP 16; TEMP 36; O2SAT 100
[2024-01-16 09:13] VITALS: BP 122/72; PULSE 93; RESP 18; O2SAT 100
[2024-01-16] MEDS: IBUPROFEN 400 MG TABLET 800 MG PO (10:10)
[2024-01-16] MEDS: ACETAMINOPHEN 500MG TAB 1000 MG PO ×3 (10:10→20:04)
[2024-01-16] MEDS: OXYTOCIN/RINGERS LACTATE 30 UNITS/500 ML BAG 40 UNITS IV (10:10)
[2024-01-16] MEDS: LACTATED RINGERS 1000ML 1,000 ML 125 ML IV (10:11)
[2024-01-16 12:23] LABS: Microscopic,Cath URINE MICROSCOPIC (MICROSCOPIC)
[2024-01-16 12:24] LABS: Appearance,Urine/Cath CLEAR (Clear); Color,Urine/Cath YELLOW (Yellow); Glucose,Urine/Cath (UA) Negative (Negative); Protein,Urine/Cath Negative (Negative); Specific Gravity, Urine/Cath 1.015 (1.005-1.030)
[2024-01-16 12:25] LABS: Bilirubin,Cath Negative (Negative); Blood, Urine/Cath Negative (Negative); Ketones,Urine/Cath Negative (Negative); Leukocyte Esterase,Cath Negative (Negative); Nitrate,Cath Negative (Negative); Urobilinogen,Cath 0.2 EU/dl (0.2)
[2024-01-16 12:42] LABS: Bacteria,Urine/Cath TRACE /lpf; Squamous Epithelial Ur./Cath Occasional #/hpf (0-5); WBC,Urine/Cath Occasional #/hpf (0-3)
[2024-01-16] MEDS: OXYCODONE 5MG IMMEDIATE RELEASE TABLET 10 MG PO ×2 (12:59→20:04)
[2024-01-16] MEDS: CLINDAMYCIN PHOSPHATE/D5W 900 MG/50 ML PIGGYBACK 100 MG IV ×2 (15:20→23:13)
[2024-01-17] MEDS: IBUPROFEN 400 MG TABLET 800 MG PO ×3 (00:26→17:22)
[2024-01-17] MEDS: OXYCODONE 5MG IMMEDIATE RELEASE TABLET 10 MG PO ×4 (01:10→23:41)
[2024-01-17] MEDS: ACETAMINOPHEN 500MG TAB 1000 MG PO ×4 (03:56→20:37)
[2024-01-17 06:36] LABS: Basophils % 0.5 % (0.1-2.0); Eosinophils # 0.1 K/mm3 (0.0-0.4); Eosinophils % 0.7 % (0.1-12.0); Hematocrit 38.7 % (37.0-47.0); Hemoglobin 12.5 g/dL (12.2-16.2); Lymphocytes # 1.9 K/mm3 (0.7-4.5); Lymphocytes % 21.9 % (10-50); Mean Corpuscular HGB Conc 32.3 g/dL (31.8-35.4); Mean Corpuscular Hemoglobin 31.2 pg (27.0-31.2); Mean Corpuscular Volume 96.5 fl (81-99); Mean Platelet Volume 8.7 fl (7.4-10.4); Monocytes # 0.5 K/mm3 (0.1-1.0); Monocytes % 6.1 % (1.7-9.3); Neutrophils % 70.9 % (37.0-80.0); Platelet Count 230 K/mm3 (142-424); Red Blood Count 4.01 M/mm3 (4.20-5.40); Red Cell Distribution Width 13.7 % (11.5-17.5); White Blood Count 8.5 K/mm3 (4.8-10.8)
--- NOTE | 2024-01-17 08:31 | EXP.ACUTE.PN ---
Subjective *Date: 01/17/24 *Time: 08:31 Interval history: She is doing well this morning. She is eating and drinking and ambulating. She is bottlefeeding. Her lochia is normal. Hemoglobin is stable at 12.5. Medical Exam Vital signs and Labs for Last 24 Hours: Vital Signs Temp Pulse Pulse Resp BP BP Pulse Ox 01/16/24 09:13 93 H 18 122/72 100 01/16/24 09:03 97.7 F 93 H 20 121/82 100 01/16/24 08:53 87 16 114/73 100 01/16/24 08:43 96.8 F L 76 16 120/74 100 01/16/24 09:09 96.8 F L 94 H 16 120/74 O2 Del Method 01/16/24 09:13 Room Air 01/16/24 09:03 Room Air 01/16/24 08:53 Room Air 01/16/24 08:43 Room Air 01/16/24 09:09 Laboratory Results - last 24 hr 01/16/24 07:30: Urine Color Yellow, Urine Appearance Clear, Urine pH 7.0, Ur Specific [place] 1.015, Urine Protein Negative, Urine Glucose (UA) Negative, Urine Ketones Negative, Urine Blood Negative, Urine Nitrate Negative, Urine Bilirubin Negative, Urine Urobilinogen 0.2, Ur Leukocyte Esterase Negative, Urine RBC None, Urine WBC Occasional, Ur Squamous Epith Cells Occasional, Urine Bacteria Trace 01/17/24 06:05: WBC 8.5, RBC 4.01 L, Hgb 12.5, Hct 38.7, MCV 96.5, MCH 31.2, MCHC 32.3, RDW 13.7, Plt Count 230, MPV 8.7, Neut % (Auto) 70.9, Lymph % (Auto) 21.9, [place] % (Auto) 6.1, Eos % (Auto) 0.7, Baso % (Auto) 0.5, Neut # (Auto) 6.0, Lymph # (Auto) 1.9, [place] # (Auto) 0.5, Eos # (Auto) 0.1, Baso # (Auto) 0.0 I & O for Labs for Last 24 Hours: Intake & Output 01/14/24 01/15/24 01/16/24 01/17/24 11:59 11:59 11:59 11:59 Intake Total 1200 / 1200 Balance 1200 / 1200 Weight 239 lb 0.015 oz Head: Present atraumatic ENT: Present normal exam Neck: Present normal inspection Respiratory: Absent accessory muscle use Rectal (female): Present deferred (female): Present deferred Assessment and Plan *Assessment and plan (1) delivery delivered: Status: Acute Category: Medical Code(s): O82 - Encounter for delivery without indication (2) Admission for sterilization: Status: Acute Category: Medical Code(s): Z30.2 - Encounter for sterilization (3) History of delivery: Status: Acute Category: Surgical Code(s): Z98.891 - History of uterine scar from previous surgery (4) BMI 60.0-69.9, adult: Status: Chronic Category: Medical Code(s): Z68.44 - Body mass index [BMI] 60.0-69.9, adult Plan She is doing well this morning. We will plan to send her home tomorrow.
[2024-01-17] MEDS: SIMETHICONE 80MG CHEWABLE TABLET 160 MG PO (09:41)
[2024-01-17] MEDS: SENNA 8.6MG TABLET 8.59999999999999964 MG PO (09:41)
--- NOTE | 2024-01-17 13:02 | SW/DCPLANNER ---
Addendum entered by Talia Virk 01/24/24 11:55: I reported infant cord screen to [facility] Intake ID#[id number]. Addendum entered by Talia Virk 01/23/24 08:14: Infant cord screen is POSITIVE for THC: I have reported this [facility] CPS office. Addendum entered by Talia Virk 01/17/24 13:57: Per Central Intake this case DOES meet criteria for investigation. Original Note: I received a referral on this patient regarding: THC use during . Patient tested positive for THC on the following dates: 06/23/23, 09/26/23, 12/07/23, 01/05/24, 01/16/24. Infant urine is also positive for THC 01/16/24. Patient admits to using CBD topical cream throughout only. Patient delivered male (Shukri Fontanez) on 01/16/2024. Infant's father was present at time of my visit (Que Fontanez 02/15/97). Patient does have one other child at home: no past Tapping [employer] involvement noted by patient. Patient, Que, infant and other child will reside at [address] [place] [address] in [place] [address]. Patient's contact number is [phone]. Patient is established w/ WIC and stated that she has the following items at home: crib, car seat, clothing, diapers and will be bottle feeding. PED MD will be Dr Tran and patient stated that she will have transportation to all follow up appointments. I have reported this case to [facility] Intake ID#[id number]. Patient is expected to discharge home tomorrow pending no setbacks. I will continue to follow up w/ ID #.
[2024-01-18] MEDS: IBUPROFEN 400 MG TABLET 800 MG PO ×2 (01:28→09:48)
[2024-01-18] MEDS: ACETAMINOPHEN 500MG TAB 1000 MG PO ×2 (03:32→09:48)
[2024-01-18] MEDS: OXYCODONE 5MG IMMEDIATE RELEASE TABLET 10 MG PO ×2 (07:04→14:26)
--- NOTE | 2024-01-18 08:51 | P.DS_ITS ---
General Admission date:: 01/16/24 Discharge date: 01/18/24 HPI HPI HPI: She is a 23-year-old 2 para 1 at 39 weeks gestational age. She has had a previous section and as a result of that was offered repeat lower segment transverse section at term. She also expressed desire for sterilization. The risks and benefits as well as the irreversibility of bilateral salpingectomy were discussed with the patient prior to surgery. A positive blood Rubella immune GBS negative Hospital Course Hospital Course Hospital Course: On January 16, 2024 she underwent a repeat lower segment transverse section and bilateral salpingectomy. She delivered a liveborn male child at 7:54 AM. The baby weighed 3713 g and was 20 inches long. He had Apgars of 9 at 1 minute and 9 at 5 minutes. She has done well and has remained afebrile throughout hospitalization. She is eating and drinking and ambulating. She is bottlefeeding. Her lochia is normal. She has a positive blood, she is her bowel immune and was group B streptococcus negative. Her full stack developer is Dr. Tran. She is discharged home to follow-up with me in approximately 2 weeks time. She will continue with her vitamins. She was given a prescription for Percocet 5/325 number 20 tablets. She was given the usual instructions with respect to limiting her activity, driving and sexual activity. She was given instructions with respect to wound care. Her condition on discharge is stable and improved. Exam Data for Last 24 hours Vital signs and Labs for Last 24 Hours: Temp Pulse Resp BP Pulse Ox O2 Del Method 96.8 F L 93 H 18 122/72 100 Room Air 01/16/24 09:09 01/16/24 09:13 01/16/24 09:13 01/16/24 09:13 01/16/24 09:13 01/16/24 09:13 I & O for Last 24 hours: Intake & Output 01/15/24 01/16/24 01/17/24 01/18/24 11:59 11:59 11:59 11:59 Intake Total 1200 / 1200 Balance 1200 / 1200 Weight 239 lb 0.015 oz Constitutional Constitutional: no acute distress *Routine HEENT Exam Head: Present normocephalic *Routine Neck Exam Neck: Present supple and full ROM *Routine Respiratory Exam Respiratory: Present normal respiratory effort; Absent accessory muscle use *Routine Abdominal Exam Abdominal: Present soft and surgical scars (I removed her dressing and her incision is clean and dry.); Absent tenderness DS: Diagnosis Discharge Diagnosis (1) delivery delivered: Status: Acute Code(s): O82 - Encounter for delivery without indication (2) Admission for sterilization: Status: Acute Code(s): Z30.2 - Encounter for sterilization (3) History of delivery: Status: Acute Code(s): Z98.891 - History of uterine scar from previous surgery (4) BMI 60.0-69.9, adult: Status: Chronic Code(s): Z68.44 - Body mass index [BMI] 60.0-69.9, adult Meds Home Medications and Allergies Home Medications Medication Instructions Recorded Confirmed Type vits no.126-ferrous fum 1 tab PO DAILY Supplement 06/23/23 01/16/24 History 28 mg iron-folic acid 800 mcg tablet (Classic ) ondansetron 4 mg disintegrating 4 mg PO Q6HP PRN nausea and 01/16/24 01/16/24 History tablet vomiting oxycodone-acetaminophen 5 mg-325 1 tab PO Q6H PRN pain #20 tabs 01/18/24 Rx mg tablet New Prescriptions to Start Prescriptions: oxycodone-acetaminophen Boogie Contreras Allergies Allergy/AdvReac Type Severity Reaction Status Date / Time Penicillins Allergy Mild Hives Verified 01/11/24 14:15 amoxicillin AdvReac Verified 01/11/24 14:15 Discharge Plan Disposition Patient Disposition: Home, Self-Care Discharge Order Discharge Orders: Discharge Order (Routine); Ordered 01/18/24 Ordered By: Boogie Contreras Follow up Plan Follow up with: Boogie Contreras MD [Staff Physician] - Enter time for follow up Prescriptions/Medication Reconciliation: New oxycodone-acetaminophen 5-325 mg tablet 1 tab PO Q6H PRN (Reason: pain) Qty: 20 0RF Continued Classic 28 mg iron- 800 mcg tablet 1 tab PO DAILY ondansetron 4 mg tablet,disintegrating 4 mg PO Q6HP PRN (Reason: nausea and vomiting) Problem Reconciliation Problems Reviewed?: Yes Patient Discharge Instructions ACTIVITY: No heavy lifting DIET: continue same diet Additional Instructions: Nothing in the vagina for 6 weeks No heavy lifting, driving, or tub baths until released Drink plenty of fluids Patient Instructions: Depression, Hemorrhage, DI for , DI for Pre-eclampsia, [facility] Post Discharge Instructions Providers Primary Care Provider: Jeff Christy Admit Provider: Boogie Contreras Attending Provider: Boogie Contreras
--- NOTE | 2024-01-23 16:53 | EXP.ANES.II ---
[facility] Anesthesia Record Part II Anesthesia Record Part II Discharge Time: 09:13 Destination: Obstetric PACU nurse assessment reviewed?: Yes Patient Condition:: Good Anesthesia Complications:: None Swallowing reflex intact?: Yes Airway Patency: Patent Cyanosis?: No Blood Pressure: 122/72 SaO2: 100 Respiratory Rate: 18 Pulse Rate: 93 Temperature: 97.7 F Mental Status: Alert & Oriented Pain level:: 0 Nausea and/or vomitting:: None Intake, IV Amount: 0 Hydration: Adequate
[2024-01-23 16:54] VITALS: BP 122/72; PULSE 93; RESP 18; TEMP 36.5; O2SAT 100
== END 2024-01-18 15:15 | disposition home or self-care (01) | DRG 785 ==
PROVIDERS: Admitting Provider Nurse Practitioner Obstetrics & Gynecology; PCP Family Medicine; Visit Provider Nurse Practitioner Obstetrics & Gynecology
PROC: 0UL70ZZ Occlusion of Bilateral Fallopian Tubes, Open Approach (ICD-10-PCS; CPT 59514; principal; 2024-01-16 07:30)
DX: O34.211 Maternal care for low transverse scar from previous cesarean delivery (principal); Z37.0 Single live birth; Z30.2 Encounter for sterilization; M06.9 Rheumatoid arthritis, unspecified; O99.334 Smoking (tobacco) complicating childbirth; F17.210 Nicotine dependence, cigarettes, uncomplicated; O99.214 Obesity complicating childbirth
CPT/HCPCS: 59514; 58700; 36415; 59025; 80053; 80307; 81001; 85014; 85018; 85025; 86850; 88302; 94761; 96374; C9290; G0283; J1956; J2405